=== PATIENT | female | born 1995 | race Caucasian/White ===

== ENCOUNTER 2019-01-24 10:02 | Emergency (ER) | payer OTHER ==
--- OUTSIDE RECORDS SUMMARY | 2019-01-24 10:04 | XMS REPORT ---
:1995 [facility] [address] [place] [address] Care Team Providers Name Role Phone Unavailable Unavailable Unavailable Problems This patient has no known problems. Allergies, Adverse Reactions, Alerts This patient has no known allergies or adverse reactions. Medications This patient has no known medications.
[2019-01-24 10:39] LABS: Absolute Lymphocytes (CBC) 1.4 K/uL (0.7-4.9); Absolute Monocytes 0.5 K/uL (0.1-1.3); Absolute Neutrophil 3.4 K/uL (1.8-8.0); Basophils % 0.5 % (0-1.3); Eosinophils % 3.5 % (0-4.4); Hematocrit 40.8 % (36.0-45.0); Lymphocytes % 25.6 % (15.3-44.8); MPV 9.2 fL (7.6-11.3); Monocytes % 8.9 % (3.3-12.3); RBC Red Blood Cell Count 4.79 M/uL (3.86-4.86)
[2019-01-24 11:15] LABS: BUN Blood Urea Nitrogen 10 mg/dL (7-18); Bicarbonate 25 mmol/L (21-32); Glucose Level 89 mg/dL (74-106); HCG, Quantitative 10469 mIU/mL (1-3); Potassium 3.8 mmol/L (3.5-5.1); Sodium Level 139 mmol/L (136-145)
[2019-01-24 12:32] LABS: Urine Blood 2+ (NEG); Urine Glucose NEGATIVE (NEG); Urine Protein NEGATIVE (NEG); Urine Specific Gravity 1.015 (1.005-1.030); Urine pH 6.5 (5.0-7.0)
--- NOTE | 2019-01-24 12:36 | RAD REPORT ---
EXAM DESCRIPTION: US - Transvaginal OB - 01/24/2019 12:22 pm CLINICAL HISTORY: with vaginal bleeding COMPARISON: None. FINDINGS: The uterus measures 10 x 5 x 6 centimeters. A gestational sac is present within the endom etrium. Within this is a yolk sac and pole with a crown-rump length 1.2 centimeters. Cardiac ac tivity 154 beats per minute. A 1.1 centimeter subchorionic bleed The right ovary is normal in size and echotexture. It contains a 1.8 centimeter cyst. Left ovary was not seen. Right and left adnexa are unremarkable. No significant free fluid is seen. IMPRESSION: Single live intrauterine with an estimated gestational age 6 weeks 6 days SAPNA 09/13/2019 Small subchorionic bleed
--- NOTE | 2019-01-24 12:40 | EDPHYS ---
Physician Documentation [facility] Name: Preethi Gamino Age: 23 yrs Sex: Female : 1995 Arrival Date: 01/24/2019 Time: 10:06 Bed 5 Private MD: ED Physician Zackery Figueroa HPI: 01/24 10:27 This 23 yrs old Female presents to ER via Ambulatory with complaints of kb Vaginal Bleeding, + Preg <12wks. 10:27 The patient presents to the emergency department with abdominal pain, that started kb "since I found out I was ", described as crampy, vaginal bleeding, described as spotting, "only when I wipe". The estimated gestational age is 10 weeks. course: care: at a clinic, Leakage of Fluid: none appreciated, Ultrasound: the patient has not had an ultrasound, Risk/complications: no obvious risks or complications are appreciated. Previous pregnancies: in previous pregnancies patient has had. Associated signs and symptoms: Pertinent positives: vaginal bleeding, abd cramping. The patient has not experienced similar symptoms in the past. The patient has not recently seen a physician. 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 - Social history:: Smoking status: Patient/guardian denies using tobacco. - Ebola Screening: : Patient negative for fever greater than or equal to 101.5 degrees Fahrenheit, and additional compatible Ebola Virus Disease symptoms Patient denies exposure to infectious person Patient denies travel to an Ebola-affected area in the 21 days before illness onset No symptoms or risks identified at this time. ROS: 10:26 Constitutional: Negative for fever, chills, and weight loss, Cardiovascular: Negative kb for chest pain, palpitations, and edema, Respiratory: Negative for shortness of breath, cough, wheezing, and pleuritic chest pain, Back: Negative for injury and pain, MS/Extremity: Negative for injury and deformity, Skin: Negative for injury, rash, and discoloration, Neuro: Negative for headache, weakness, numbness, tingling, and seizure. 10:26 Abdomen/GI: Positive for abdominal cramps. 10:26 : Positive for vaginal bleeding. Exam: 10:26 Constitutional: This is a well developed, well nourished patient who is awake, alert, kb and in no acute distress. Head/Face: Normocephalic, atraumatic. Chest/axilla: Normal chest wall appearance and motion. Nontender with no deformity. No lesions are appreciated. Cardiovascular: Regular rate and rhythm with a normal S1 and S2. No gallops, murmurs, or rubs. Normal PMI, no JVD. No pulse deficits. Respiratory: Lungs have equal breath sounds bilaterally, clear to auscultation and percussion. No rales, rhonchi or wheezes noted. No increased work of breathing, no retractions or nasal flaring. Back: No spinal tenderness. No costovertebral tenderness. Full range of motion. Skin: Warm, dry with normal turgor. Normal color with no rashes, no lesions, and no evidence of cellulitis. MS/ Extremity: Pulses equal, no cyanosis. Neurovascular intact. Full, normal range of motion. Neuro: Awake and alert, GCS 15, oriented to person, place, time, and situation. Cranial nerves II-XII grossly intact. Motor strength 5/5 in all extremities. Sensory grossly intact. Cerebellar exam normal. Normal gait. 10:26 Abdomen/GI: Inspection: abdomen appears normal, Bowel sounds: normal, in all quadrants, Palpation: soft, in all quadrants, mild abdominal tenderness, in the right lower quadrant and left lower quadrant. Vital Signs: 10:11 BP 137 / 92; Pulse 77; Resp 18; Temp 98.3; Pulse Ox 100% on R/A; Pain 4/10; sg 10:45 BP 107 / 74; Pulse 73; Resp 18; Pulse Ox 98% ; ae3 11:24 BP 108 / 76; Pulse 68; Resp 18; Pulse Ox 100% on R/A; ae3 12:28 BP 120 / 82; Pulse 70; Resp 18; Pulse Ox 100% on R/A; ae3 MDM: 10:06 Patient medically screened. kb 10:26 Data reviewed: vital signs, nurses notes. Data interpreted: Pulse oximetry: on room air kb is 100 %. Interpretation: normal. 11:17 ED course: Bedside US done, FHT noted. kb 12:39 Counseling: I had a detailed discussion with the patient and/or guardian regarding: the kb historical points, exam findings, and any diagnostic results supporting the discharge/admit diagnosis, lab results, radiology results, the need for outpatient follow up, an OB/Gyne specialist, to return to the emergency department if symptoms worsen or persist or if there are any questions or concerns that arise at home. 01/24 10:09 Order name: Quantitative Hcg; Complete Time: 11:16 kb 01/24 10:09 Order name: Abo/rh Typing; Complete Time: 11:08 kb 01/24 10:09 Order name: Basic Metabolic Panel; Complete Time: 11:16 kb 01/24 10:09 Order name: CBC with Diff; Complete Time: 11:04 kb 01/24 10:54 Order name: Urine Dipstick--Ancillary (enter results); Complete Time: 12:33 ms 01/24 10:54 Order name: Urine --Ancillary (enter results); Complete Time: 12:33 ms 01/24 10:09 Order name: Urine Test (obtain specimen); Complete Time: 10:44 kb 01/24 10:09 Order name: IV Saline Lock; Complete Time: 10:28 kb 01/24 10:09 Order name: Labs collected and sent; Complete Time: 10:28 kb 01/24 10:09 Order name: NPO; Complete Time: 10:28 kb 01/24 10:09 Order name: Urine Dipstick-Ancillary (obtain specimen); Complete Time: 10:44 kb 01/24 11:08 Order name: US Transvaginal Ob; Complete Time: 12:37 kb 01/24 12:29 Order name: Hepatic Function; Complete Time: 14:33 ms Administered Medications: No medications were administered Point of Care Testing: Urine : 12:52 hCG Reading: Positive; ae3 Disposition: 22:08 Co-signature as Attending Physician, Zackery Figueroa MD Available for consultation at ps1 all times . Disposition: 01/24/19 12:39 Discharged to Home. Impression: Threatened . - Condition is Stable. - Discharge Instructions: Vaginal Bleeding During , First Trimester, Threatened Miscarriage, [id number], Pelvic Rest. - Medication Reconciliation Form, Thank You Letter, Antibiotic Education, Prescription Opioid Use form. - Follow up: Emergency Department; When: As needed; Reason: Worsening of condition. Follow up: Private Physician; When: 2 - 3 days; Reason: Recheck today's complaints, Continuance of care, Re-evaluation by your physician. Signatures: Dispatcher [employer] EDMS Nimo Story, BOOKER-C CUTTING DEPARTMENT SUPERVISOR-Jin Weeks, RN RN sg Zackery Figueroa MD MD ps1 Geni Hannon ae3 Corrections: (The following items were deleted from the chart) 12:53 12:39 01/24/2019 12:39 Discharged to Home. Impression: Threatened . Condition ae3 is Stable. Discharge Instructions: Vaginal Bleeding During , First Trimester, Threatened Miscarriage, [id number], Pelvic Rest. Forms are Medication Reconciliation Form, Thank You Letter, Antibiotic Education, Prescription Opioid Use. Follow up: Emergency Department; When: As needed; Reason: Worsening of condition. Follow up: Private Physician; When: 2 - 3 days; Reason: Recheck today's complaints, Continuance of care, Re-evaluation by your physician. kb
--- NOTE | 2019-01-24 12:40 | ER ---
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 Transition of care: patient was not received from another setting of care. Onset of symptoms was January 24, 2019. Risk Assessment: Do you want to hurt yourself or someone else? Patient reports no desire to harm self or others. Initial Sepsis Screen: Does the patient meet any 2 criteria? No. Patient's initial sepsis screen is negative. Does the patient have a suspected source of infection? No. Patient's initial sepsis screen is negative. Care prior to arrival: None. 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 - Social history:: Smoking status: Patient/guardian denies using tobacco. - Ebola Screening: : Patient negative for fever greater than or equal to 101.5 degrees Fahrenheit, and additional compatible Ebola Virus Disease symptoms Patient denies exposure to infectious person Patient denies travel to an Ebola-affected area in the 21 days before illness onset No symptoms or risks identified at this time. Screenin:35 Abuse screen: Denies threats or abuse. Nutritional screening: No deficits noted. ae3 Tuberculosis screening: No symptoms or risk factors identified. Fall Risk None identified. Assessment: 10:28 Obstetrical Assessment: General assessment: awake and alert, skin warm and dry. ae3 General: Appears in no apparent distress. comfortable, Behavior is calm, cooperative, appropriate for age. Pain: Complains of pain in abdomen. Neuro: Level of Consciousness is awake, alert, obeys commands, Oriented to person, place, time, situation, Appropriate for age. Cardiovascular: No deficits noted. Respiratory: Denies shortness of breath. GI: Reports lower abdominal pain, upper abdominal pain, cramping, Patient currently denies nausea. : Reports cramping, vaginal bleeding that is bright red, light flow, Reports one small clot was passed. EENT: No signs and/or symptoms were reported regarding the EENT system. Derm: No deficits noted. No signs and/or symptoms reported regarding the dermatologic system. Skin is intact, Skin is dry, Skin is pink, warm \T\ dry. Skin temperature is warm. Musculoskeletal: No signs and/or symptoms reported regarding the musculoskeletal system. 10:34 Reassessment: Patient ambulated to restroom. Patient instructed on urine sample ae3 procedure. Patient has steady gait. 11:27 Reassessment: Patient appears in no apparent distress at this time. Patient and/or ae3 family updated on plan of care and expected duration. Pain level reassessed. Friend at bedside.. 12:30 Reassessment: Patient appears in no apparent distress at this time. No changes from ae3 previously documented assessment. Patient and/or family updated on plan of care and expected duration. Pain level reassessed. Friend at bedside. Vital Signs: 10:11 BP 137 / 92; Pulse 77; Resp 18; Temp 98.3; Pulse Ox 100% on R/A; Pain 4/10; sg 10:45 BP 107 / 74; Pulse 73; Resp 18; Pulse Ox 98% ; ae3 11:24 BP 108 / 76; Pulse 68; Resp 18; Pulse Ox 100% on R/A; ae3 12:28 BP 120 / 82; Pulse 70; Resp 18; Pulse Ox 100% on R/A; ae3 Vitals: 12:52 Heart Tones Please see ultrasound report.. ae3 ED Course: 10:06 Patient arrived in ED. mr 10:06 Nimo Story FNP-C is [facility]. kb 10:06 Zackery Figueroa MD is Attending Physician. kb 10:09 Arm band placed on. sg 10:11 Triage completed. sg 10:15 Inserted saline lock: 20 gauge in right antecubital area, using aseptic technique. ae3 Blood collected. 10:31 Bed in low position. Call light in reach. Side rails up X 1. Adult w/ patient. Pulse ox ae3 on. NIBP on. 12:08 Ultrasound completed. Patient tolerated well. sg3 12:23 US Transvaginal Ob In Process Unspecified. EDMS 12:51 No provider procedures requiring assistance completed. IV discontinued, intact, ae3 bleeding controlled, No redness/swelling at site. Pressure dressing applied. Administered Medications: No medications were administered Point of Care Testing: Urine : 12:52 hCG Reading: Positive; ae3 Outcome: 12:39 Discharge ordered by MD. kb 12:52 Discharged to home ambulatory. ae3 12:52 Condition: stable 12:52 Discharge instructions given to patient, Instructed on discharge instructions, follow up and referral plans. Demonstrated understanding of instructions. 12:53 Patient left the ED. ae3 Signatures: Dispatcher [employer] EDMS Nimo Story FNP-C FNP-Jin Weeks RN RN sg Rivera, Mary mr Godinez, Sarah sgGeni Hernandez ae3 Corrections: (The following items were deleted from the chart) 10:14 10:11 LMP 11/18/2018 sg sg
[2019-01-24 12:58] LABS: ALT/SGPT 16 U/L (12-78); AST/SGOT 13 U/L (15-37); Alkaline Phosphatase 67 U/L (45-117); Bilirubin Direct < 0.1 mg/dL (0-0.2); Bilirubin Total 0.5 mg/dL (0.2-1.0); Protein, Total 7.8 g/dL (6.4-8.2)
[2019-01-24 13:06] VITALS: TEMP 98.3
[2019-01-24 13:09] VITALS: O2SAT 100
[2019-01-24 13:10] VITALS: BP 120/82
[2019-01-24] MEDS ORDERED: LIDOCAINE 1% MPF 5 ML VIAL ONE (13:34)
== END 2019-01-24 12:53 | disposition home or self-care (01) ==
LOC: ER 10:02
DX: O20.0 Threatened abortion (principal); Z3A.10 10 weeks gestation of pregnancy
CPT/HCPCS: 36415; 76817; 80048; 80076; 81003; 81025; 84702; 85025; 86900; 86901; 99284

== ENCOUNTER 2022-09-07 14:54 | Emergency (ER) | payer OTHER ==
--- OUTSIDE RECORDS SUMMARY | 2022-09-07 15:00 | XMS REPORT | Continuity of Care Document ---
:[address] [facility] t Address [address] [place] [address] Care Team Providers Name Role Phone DAYSI SHAW Primary Care Physician Unavailable DAYSI SHAW Attending Clinician Unavailable Colin Daysi BOWENS Attending Clinician [phone] Lucía Patiño CNM Attending Clinician LUCÍA PATIÑO Attending Clinician Unavailable Provider, Kristian-Rmchp Temp Attending Clinician Unavailable Lab, Pea-Rmchp Attending Clinician Unavailable Luz Maria Warren DO Attending Clinician 1, Pea-m Room Attending Clinician Unavailable Doctor Unassigned, [place] Attending Clinician Unavailable LISSY BAI Attending Clinician Unavailable Lissy Funez Attending Clinician Lab, Kristian-Rmchp Attending Clinician Unavailable Arielle Glass Attending Clinician ARIELLE RAJPUT Attending Clinician Unavailable Visit, AngThadRmchp Nurse Attending Clinician Unavailable LORNA KIRKPATRICK Attending Clinician Unavailable Lorna Snow Attending Clinician Mercedes Ro RN Attending Clinician Unavailable Marnie Hartman Attending Clinician LORNA KIRKPATRICK Admitting Clinician Unavailable Payers Payer Name Policy Type Policy Number Effective Date Expiration Date Yinka lopez [employer] [place] [id number] 2018 00:00:00 [place] [place] [id number] 2022 00:00:00 Problems Condition Condition Condition Status Onset Resolution Last Treating Co mments Source Name Details Category Date Date Treatment Clinician Date History of History of Disease Active 2021-09 Overview : Univers abnormal abnormal 10-19 Formattin ity of cervical cervical 00:00: g of this [place] Pap smear Pap smear 00 note [facility] might be Branch different from the original. 12/2018 LGSIL12/2 021 ASCUS with +HPV03/20 22 negative colpo H/O H/O Disease Active 2021-09 Univers syncope syncope - ity of 00:00: [place] 00 [facility] UTI in UTI in Disease Active 2021-09 Univers 0-26 ity of 00:00: [place] [facility] Supervisio Supervisio Disease Active U nivers n of n of 06-19 it[place] of high[place]risk high[place] [facility] [place] Multiparit Multiparit Disease Active U nivers y y 06-19 ity of 00:00: [place] [facility] History of History of Disease Active U nivers miscarriag miscarriag 06-19 it y of e e 00:00: [place] 00 [facility] Routine Routine Disease Active Univers 1-24 [place] of [place] [facility] Branch ASCUS with ASCUS with Disease Active Overview : Univers positive positive -11 Formattin ity of high risk high risk 00:00: [place] HPV HPV 00 note Medical cervical cervical might be Bran ch different from the original. No SEAN noted on bx. Will need cotesting in 12 months (08/2022) . UTI in UTI in Disease Active 2020-09 Overview: Univer s - Formattin i ty of 00:00: g of this [place] 00 note Medical might be Branch different from the original. neg SAROJ Gonorrhea Gonorrhea Disease Active 2020-09 Overview: Univers in in - Formattin ity of 00:00: [place] 00 note Medical might be Branch different from the original. Pending SAROJ Papanicola Papanicola Disease Active Overview : Univers ou smear ou smear 4-30 Formattin ity of of cervix of cervix 00:00: [place] with low with low 00 note Medica l grade grade might be Branch squamous squamous different intraepith intraepith from the elial elial original. lesion lesion No SEAN (LGSIL) (LGSIL) noted on bx. Will need cotesting in 12 months (08/2022) . Flu Flu Disease Active Univers vaccine vaccine 4-17 ity of need need 00:00: [place] 00 Medical Branch No known No known Disease Metho di active active st problems problems Hospit [facility] l Allergies, Adverse Reactions, Alerts Allergy Allergy Status Severity Reaction(s) Onset Inactive Treating Comm ents Source Name Type Date Date Clinician NO KNOWN Drug Active [facility] ALLERGIE Class ity of S [facility] Social History Social Habit Start Date Stop Date Quantity Comments Source ASSERTION 2022-05-19 [facility] 00:00:00 [facility] [place] [facility] Exposure to 2022-08-28 2022-09-07 Not sure [facility] SARS-CoV-2 00:00:00 13:27:00 [facility] (event) [place]ien Alcohol intake 2022-09-07 2022-09-07 0 /d [facility] 00:00:00 00:00:00 [facility] [place] [facility] Tobacco use and 2022-06-19 2022-06-19 Smokeless tobacco Un iversity of exposure 00:00:00 00:00:00 non-user [facility] [place] [facility] Sex Ass[birth year] At [birth year] [facility] 00:00:00 00:00:00 Hospital Smoking Status Start Date Stop Date Source Tobacco smoking consumption [facility] unknown Never smoked tobacco [facility] Medications Ordered Filled Start Stop Current Ordering Indication Dosage Frequency Signature Comments Components Source Medication Medication Date Date Medication? Clinician (SIG) Name Name cephALEXin 2021-09- Yes [id number] 500mg Take 1 Univers (KEFLEX) 10-19 capsule by ity of 500 mg 00:00: 05:59 mouth 4 [place] capsule 00 :00 (four) Medical times [place] daily for 10 days. proMETHazin 2021-09 Yes [id number] 25mg Take 1 Univers e 25 mg 0-26 tablet by ity of tablet 00:00: mouth [place] 00 every 6 Medical (six) Branch hours as needed for Nausea and Vomiting (N/V). proMETHazin 2021-09 Yes [id number] 25mg Take 1 Univers e 25 mg 0-26 tablet by ity of tablet 00:00: mouth [place] 00 every 6 Medical (six) Branch hours as needed for Nausea and Vomiting (N/V). proMETHazin 2021-09 Yes [id number] 25mg Take 1 Univers e 25 mg 0-26 tablet by ity of tablet 00:00: mouth [place] 00 every 6 Medical (six) Branch hours as needed for Nausea and Vomiting (N/V). proMETHazin 2021-09 Yes [id number] 25mg Take 1 Univers e 25 mg 0-26 tablet by ity of tablet 00:00: mouth [place] 00 every 6 Medical (six) Branch hours as needed for Nausea and Vomiting (N/V). proMETHazin 2021-09 Yes [id number] 25mg Take 1 Univers e 25 mg 0-26 tablet by ity of tablet 00:00: mouth [place] 00 every 6 Medical (six) Branch hours as needed for Nausea and Vomiting (N/V). proMETHazin 2021-09 Yes [id number] 25mg Take 1 Univers e 25 mg 0-26 tablet by ity of tablet 00:00: mouth [place] 00 every 6 Medical (six) Branch hours as needed for Nausea and Vomiting (N/V). proMETHazin 2021-09 Yes [id number] 25mg Take 1 Univers e 25 mg 0-26 tablet by ity of tablet 00:00: mouth [place] 00 every 6 Medical (six) Branch hours as needed for Nausea and Vomiting (N/V). proMETHazin 2021-09 Yes [id number] 25mg Take 1 Univers e 25 mg 0-26 tablet by ity of tablet 00:00: mouth [place] 00 every 6 Medical (six) Branch hours as needed for Nausea and Vomiting (N/V). proMETHazin 2021-09 Yes [id number] 25mg Take 1 Univers e 25 mg 0-26 tablet by ity of tablet 00:00: mouth [place] 00 every 6 Medical (six) Branch hours as needed for Nausea and Vomiting (N/V). proMETHazin 2021-09 Yes [id number] 25mg Take 1 Univers e 25 mg 0-26 tablet by ity of tablet 00:00: mouth [place] 00 every 6 Medical (six) Branch hours as needed for Nausea and Vomiting (N/V). proMETHazin 2021-09 Yes [id number] 25mg Take 1 Univers e 25 mg 0-26 tablet by ity of tablet 00:00: mouth [place] 00 every 6 Medical (six) Branch hours as needed for Nausea and Vomiting (N/V). Nitrofurant 2021- Yes [id number] 100mg Take 1 Univers oin&Nit. 9-30 10-11 capsule by ity of [place] 00:00: 04:59 mouth in [place] (MACROBID) 00 :00 the Medical 100 mg morning Branch capsule and 1 capsule in the evening. Do all this for 10 days. Nitrofurant 2021- Yes [id number] 100mg Take 1 Univers oin&Nit. 9-30 10-11 capsule by ity of [place] 00:00: 04:59 mouth in [place] (MACROBID) 00 :00 the Medical 100 mg morning Branch capsule and 1 capsule in the evening. Do all this for 10 days. Nitrofurant 2021- Yes [id number] 100mg Take 1 Univers oin&Nit. 9-30 10-11 capsule by ity of [place] 00:00: 04:59 mouth in [place] (MACROBID) 00 :00 the Medical 100 mg morning Branch capsule and 1 capsule in the evening. Do all this for 10 days. Nitrofurant 2021- Yes [id number] 100mg Take 1 Univers oin&Nit. 9-30 10-11 capsule by ity of [place] 00:00: 04:59 mouth in [place] (MACROBID) 00 :00 the Medical 100 mg morning Branch capsule and 1 capsule in the evening. Do all this for 10 days. Yes [id number] 1{tbl} Take 1 U nivers multivitami 9-27 tablet by ity of n ( 00:00: mouth in [place] VITAMIN) 00 the Medical tablet morning. Branch Yes [id number] 1{tbl} Take 1 U nivers multivitami 9-27 tablet by ity of n ( 00:00: mouth in [place] VITAMIN) 00 the Medical tablet morning. [place] Yes [id number] 1{tbl} Take 1 U nivers multivitami 9-27 tablet by ity of n ( 00:00: mouth in [place] VITAMIN) 00 the Medical tablet morning. Branch Yes [id number] 1{tbl} Take 1 U nivers multivitami 9-27 tablet by ity of n ( 00:00: mouth in [place] VITAMIN) 00 the Medical tablet morning. Branch Yes [id number] 1{tbl} Take 1 U nivers multivitami 9-27 tablet by ity of n ( 00:00: mouth in [place] VITAMIN) 00 the Medical tablet morning. [place] Yes [id number] 1{tbl} Take 1 U nivers multivitami 9-27 tablet by ity of n ( 00:00: mouth in [place] VITAMIN) 00 the Medical tablet morning. [place] Yes [id number] 1{tbl} Take 1 U nivers multivitami 9-27 tablet by ity of n ( 00:00: mouth in [place] VITAMIN) 00 the Medical tablet morning. [place] Yes [id number] 1{tbl} Take 1 U nivers multivitami 9-27 tablet by ity of n ( 00:00: mouth in [place] VITAMIN) 00 the Medical tablet morning. [place] Yes [id number] 1{tbl} Take 1 U nivers multivitami 9-27 tablet by ity of n ( 00:00: mouth in [place] VITAMIN) 00 the Medical tablet morning. [place] Yes [id number] 1{tbl} Take 1 U nivers multivitami 9-27 tablet by ity of n ( 00:00: mouth in [place] VITAMIN) 00 the Medical tablet morning. [place] Yes [id number] 1{tbl} Take 1 U nivers multivitami 9-27 tablet by ity of n ( 00:00: mouth in [place] VITAMIN) 00 the Medical tablet morning. [place] Yes [id number] 1{tbl} Take 1 U nivers multivitami 9-27 tablet by ity of n ( 00:00: mouth in [place] VITAMIN) 00 the Medical tablet morning. [place] Yes [id number] 1{tbl} Take 1 U nivers multivitami 9-27 tablet by ity of n ( 00:00: mouth in [place] VITAMIN) 00 the Medical tablet morning. Branch Yes [id number] 1{tbl} Take 1 U nivers multivitami 9-27 tablet by ity of n ( 00:00: mouth in [place] VITAMIN) 00 the Medical tablet morning. Branch Yes [id number] 1{tbl} Take 1 U nivers multivitami 9-27 tablet by ity of n ( 00:00: mouth in [place] VITAMIN) 00 the Medical tablet morning. [place] Yes [id number] 1{tbl} Take 1 U nivers multivitami 9-27 tablet by ity of n ( 00:00: mouth in [place] VITAMIN) 00 the Medical tablet morning. [place] Yes [id number] 1{tbl} Take 1 U nivers multivitami 9-27 tablet by ity of n ( 00:00: mouth in [place] VITAMIN) 00 the Medical tablet morning. [place] Yes [id number] 1{tbl} Take 1 U nivers multivitami 9-27 tablet by ity of n ( 00:00: mouth in [place] VITAMIN) 00 the Medical tablet morning. [place] Yes [id number] 1{tbl} Take 1 U nivers multivitami 9-27 tablet by ity of n ( 00:00: mouth in [place] VITAMIN) 00 the Medical tablet morning. [place] Yes [id number] 1{tbl} Take 1 U nivers multivitami 9-27 tablet by ity of n ( 00:00: [place] VITAMIN) 00 the Medical tablet morning. Branch No known No Univers medications 3-10 ity of 11:56: [place] 40 [facility] Nitrofurant 2020-09- No [id number] 100mg Take 1 Univers oin&Nit. 2-31 03-10 capsule by ity of [place] 00:00: 00:00 mouth 2 [place] (MACROBID) 00 :00 (two) Medical 100 mg times Branch capsule daily. Nitrofurant 2020-09- No [id number] 100mg Take 1 Univers oin&Nit. 2 03-10 capsule by ity of [place] 00:00: 00:00 mouth 2 [place] (MACROBID) 00 :00 (two) Medical 100 mg times Branch capsule daily. 2020-09- No [id number] 1{tbl} Take 1 Univers multivitami 11-19 03-10 tablet by it y of n ( 00:00[place] VIT[place] 00 :00 daily. Medical tablet Branch 2020-09- No [id number] 1{tbl} Take 1 Univers multivitami 11-19 03-10 tablet by it y of n ( 00:00[place] VITAMIN[place] 00 :00 daily. Medical tablet Branch No known No No known Metho di medications 2-[address] [facility]:33: [facility] Immunizations Ordered Immunization Filled Immunization Date Status Commen ts Source Name Name Influenza Virus 2019-01-07 Completed Universit y of Vaccine Quad .5 mL IM 00:00:00 [place] Medical 6+ MO Branch Influenza Virus 2019-01-07 Completed Universit y of Vaccine Quad .5 mL IM 00:00:00 [place] Medical 6+ MO Branch Influenza Virus 2019-01-07 Completed Universit y of Vaccine Quad .5 mL IM 00:00:00 [place] 6+ MO Branch Influenza Virus 2019-01-07 Completed Universit y of Vaccine Quad .5 mL IM 00:00:00 [place] Medical 6+ MO Branch Influenza Virus 2019-01-07 Completed Universit y of Vaccine Quad .5 mL IM 00:00:00 [place] Medical 6+ MO Branch Influenza Virus 2019-01-07 Completed Universit y of Vaccine Quad .5 mL IM 00:00:00 [place] Medical 6+ MO Branch Influenza Virus 2019-01-07 Completed Universit y of Vaccine Quad .5 mL IM 00:00:00 [place] Medical 6+ MO Branch Influenza Virus 2019-01-07 Completed Universit y of Vaccine Quad .5 mL IM 00:00:00 [place] Medical 6+ MO Branch Influenza Virus 2019-01-07 Completed Universit y of Vaccine Quad .5 mL IM 00:00:00 [place] Medical 6+ MO Branch Influenza Virus 2019-01-07 Completed Universit y of Vaccine Quad .5 mL IM 00:00:00 [place] Medical 6+ MO Branch Influenza Virus 2019-01-07 Completed Universit y of Vaccine Quad .5 mL IM 00:00:00 [place] Medical 6+ MO Branch Influenza Virus 2019-01-07 Completed Universit y of Vaccine Quad .5 mL IM 00:00:00 [place] Medical 6+ MO Branch Influenza Virus 2019-01-07 Completed Universit y of Vaccine Quad .5 mL IM 00:00:00 [place] Medical 6+ MO Branch Influenza Virus 2019-01-07 Completed Universit y of Vaccine Quad .5 mL IM 00:00:00 [place] Medical 6+ MO Branch Influenza Virus 2019-01-07 Completed Universit y of Vaccine Quad .5 mL IM 00:00:00 [place] Medical 6+ MO Branch Influenza Virus 2019-01-07 Completed Universit y of Vaccine Quad .5 mL IM 00:00:00 [place] Medical 6+ MO Branch Influenza Virus 2019-01-07 Completed Universit y of Vaccine Quad .5 mL IM 00:00:00 [place] Medical 6+ MO Branch Influenza Virus 2019-01-07 Completed Universit y of Vaccine Quad .5 mL IM 00:00:00 [place] Medical 6+ MO Branch Influenza Virus 2019-01-07 Completed Universit y of Vaccine Quad .5 mL IM 00:00:00 [place] Medical 6+ MO Branch Influenza Virus 2019-01-07 Completed Universit y of Vaccine Quad .5 mL IM 00:00:00 [place] Medical 6+ MO Branch Influenza Virus 2019-01-07 Completed Universit y of Vaccine Quad .5 mL IM 00:00:00 [place] Medical 6+ MO Branch Influenza Virus 2019-01-07 Completed Universit y of Vaccine Quad .5 mL IM 00:00:00 [place] Medical 6+ MO Branch Influenza Virus 2019-01-07 Completed Universit y of Vaccine Quad .5 mL IM 00:00:00 [place] Medical 6+ MO Branch Influenza Virus 2016-09-13 Completed Universit y of Vaccine Quad IM 3+ 00:00:00 [facility] Branch Influenza Virus 2016-09-13 Completed Universit y of Vaccine Quad IM 3+ 00:00:00 [facility] Branch Influenza Virus 2016-09-13 Completed Universit y of Vaccine Quad IM 3+ 00:00:00 [facility] Influenza Virus 2016-09-13 Completed Universit y of Vaccine Quad IM 3+ 00:00:00 [facility] Influenza Virus 2016-09-13 Completed Universit y of Vaccine Quad IM 3+ 00:00:00 [facility] Influenza Virus 2016-09-13 Completed Universit y of Vaccine Quad IM 3+ 00:00:00 [facility] Influenza Virus 2016-09-13 Completed Universit y of Vaccine Quad IM 3+ 00:00:00 [facility] Influenza Virus 2016-09-13 Completed Universit y of Vaccine Quad IM 3+ 00:00:00 [facility] Influenza Virus 2016-09-13 Completed Universit y of Vaccine Quad IM 3+ 00:00:00 [facility] Influenza Virus 2016-09-13 Completed Universit y of Vaccine Quad IM 3+ 00:00:00 [facility] Influenza Virus 2016-09-13 Completed Universit y of Vaccine Quad IM 3+ 00:00:00 [facility] Influenza Virus 2016-09-13 Completed Universit y of Vaccine Quad IM 3+ 00:00:00 [facility] Influenza Virus 2016-09-13 Completed Universit y of Vaccine Quad IM 3+ 00:00:00 [facility] Influenza Virus 2016-09-13 Completed Universit y of Vaccine Quad IM 3+ 00:00:00 [facility] Influenza Virus 2016-09-13 Completed Universit y of Vaccine Quad IM 3+ 00:00:00 [facility] Influenza Virus 2016-09-13 Completed Universit y of Vaccine Quad IM 3+ 00:00:00 [facility] Influenza Virus 2016-09-13 Completed Universit y of Vaccine Quad IM 3+ 00:00:00 [facility] Influenza Virus 2016-09-13 Completed Universit y of Vaccine Quad IM 3+ 00:00:00 [facility] Influenza Virus 2016-09-13 Completed Universit y of Vaccine Quad IM 3+ 00:00:00 [facility] Influenza Virus 2016-09-13 Completed Universit y of Vaccine Quad IM 3+ 00:00:00 [facility] Influenza Virus 2016-09-13 Completed Universit y of Vaccine Quad IM 3+ 00:00:00 [facility] Influenza Virus 2016-09-13 Completed Universit y of Vaccine Quad IM 3+ 00:00:00 [facility] Influenza Virus 2016-09-13 Completed Universit y of Vaccine Quad IM 3+ 00:00:00 [facility] HPV 2012-07-08 Completed University of 00:00:00 [facility] [place] [facility] HPV 2012-07-08 Completed University of 00:00:00 [facility] [place] [facility] HPV 2012-07-08 Completed University of 00:00:00 [facility] [place] [facility] HPV 2012-07-08 Completed University of 00:00:00 [facility] [place] [facility] HPV 2012-07-08 Completed University of 00:00:00 [facility] [place] [facility] HPV 2012-07-08 Completed University of 00:00:00 [facility] [place] [facility] HPV 2012-07-08 Completed University of 00:00:00 [facility] [place] [facility] HPV 2012-07-08 Completed University of 00:00:00 [facility] [place] [facility] HPV 2012-07-08 Completed University of 00:00:00 [facility] [place] [facility] HPV 2012-07-08 Completed University of 00:00:00 [facility] [place] [facility] HPV 2012-07-08 Completed University of 00:00:00 [facility] [place] [facility] HPV 2008-12-17 Completed University of 00:00:00 [facility] [place] [facility] Meningococcal 2008-12-17 Completed University of Polysaccharide 00:00:00 [place] [facility] valdo (groups A, C, Y and Branc h W-135) conjugate vaccine (MCV4P) HPV 2008-12-17 Completed University of 00:00:00 [facility] [place] [facility] Meningococcal 2008-12-17 Completed University of Polysaccharide 00:00:00 [place] Medi valdo (groups A, C, Y and Branc h W-135) conjugate vaccine (MCV4P) HPV 2008-12-17 Completed University of 00:00:00 [facility] [place] [facility] Meningococcal 2008-12-17 Completed University of Polysaccharide 00:00:00 [place] Medi valdo (groups A, C, Y and Branc h W-135) conjugate vaccine (MCV4P) HPV 2008-12-17 Completed University of 00:00:00 [facility] [place] [facility] Meningococcal 2008-12-17 Completed University of Polysaccharide 00:00:00 [place] Medi valdo (groups A, C, Y and Branc h W-135) conjugate vaccine (MCV4P) HPV 2008-12-17 Completed University of 00:00:00 [facility] [place] [facility] Meningococcal 2008-12-17 Completed University of Polysaccharide 00:00:00 [place] Medi valdo (groups A, C, Y and Branc h W-135) conjugate vaccine (MCV4P) HPV 2008-12-17 Completed University of 00:00:00 [facility] [place] [facility] Meningococcal 2008-12-17 Completed University of Polysaccharide 00:00:00 [place] Medi valdo (groups A, C, Y and Branc h W-135) conjugate vaccine (MCV4P) HPV 2008-12-17 Completed University of 00:00:00 [facility] [place] [facility] Meningococcal 2008-12-17 Completed University of Polysaccharide 00:00:00 [place] Medi valdo (groups A, C, Y and Branc h W-135) conjugate vaccine (MCV4P) HPV 2008-12-17 Completed University of 00:00:00 [facility] [place] [facility] Meningococcal 2008-12-17 Completed University of Polysaccharide 00:00:00 [place] Medi valdo (groups A, C, Y and Branc h W-135) conjugate vaccine (MCV4P) HPV 2008-12-17 Completed University of 00:00:00 [facility] [place] [facility] Meningococcal 2008-12-17 Completed University of Polysaccharide 00:00:00 [place] Medi valdo (groups A, C, Y and Branc h W-135) conjugate vaccine (MCV4P) HPV 2008-12-17 Completed University of 00:00:00 [facility] [place] [facility] Meningococcal 2008-12-17 Completed University of Polysaccharide 00:00:00 [place] Medi valdo (groups A, C, Y and Branc h W-135) conjugate vaccine (MCV4P) HPV 2008-12-17 Completed University of 00:00:00 [facility] [place] [facility] Meningococcal 2008-12-17 Completed University of Polysaccharide 00:00:00 [place] Medi valdo (groups A, C, Y and Branc h W-135) conjugate vaccine (MCV4P) Vital Signs Vital Name Observation Time Observation Value Comments Source Systolic blood 2022-09-07 19:28:00 120 mm[Hg] Univer sity of pressure [facility] [place] [facility] Diastolic blood 2022-09-07 19:28:00 76 mm[Hg] Unive rsity of pressure [facility] [place] [facility] Heart rate 2022-09-07 19:28:00 84 /min [facility] Body temperature 2022-09-07 19:28:00 36.33 [facility] Res[facility] rate 2022-09-07 19:28:00 18 /min [facility] Body height 2022-09-07 19:28:00 170.2 cm [facility] Body weight 2022-09-07 19:28:00 54.035 kg Universi ty [facility] [place] [facility] BMI 2022-09-07 19:28:00 18.66 kg/m2 Universi ty [facility] [place] [facility] Systolic blood 2022-08-15 19:01:00 111 mm[Hg] Univer sity of pressure [place] [facility] Diastolic blood 2022-08-15 19:01:00 73 mm[Hg] Unive rsity of pressure [place] [facility] Heart rate 2022-08-15 19:01:00 89 /min Universi ty of [place] [facility] Body temperature 2022-08-15 19:01:00 36.83 Samantha Univ ersity of [place] [facility] Respiratory rate 2022-08-15 19:01:00 18 /min Univ ersity of [place] [facility] Body height 2022-08-15 19:01:00 170.2 cm Universi ty [facility] [place] [facility] Body weight 2022-08-15 19:01:00 53.978 kg [facility]i ty [facility] [place] [facility] BMI 2022-08-15 19:01:00 18.64 kg/m2 [facility]i [facility] [place] [facility] Systolic blood 2022-07-18 18:08:00 124 mm[Hg] Univer sity of pressure [place] [facility] Diastolic blood 2022-07-18 18:08:00 82 mm[Hg] Unive rsity of pressure [place] [facility] Heart rate 2022-07-18 18:08:00 90 /min Universi ty [facility] [place] [facility] Body temperature 2022-07-18 18:08:00 36.94 [facility] Univ ersity of [place] [facility] Respiratory rate 2022-07-18 18:08:00 20 /min Univ ersity of [place] [facility] Body height 2022-07-18 18:08:00 170.2 cm Universi ty [facility] [place] [facility] Body weight 2022-07-18 18:08:00 53.797 kg Universi ty [facility] [place] [facility] BMI 2022-07-18 18:08:00 18.58 kg/m2 [facility] [place] [facility] Systolic blood 2022-06-19 15:01:00 121 mm[Hg] Univer sity of pressure [place] [facility] Diastolic blood 2022-06-19 15:01:00 84 mm[Hg] Unive rsity of pressure [place] [facility] Heart rate 2022-06-19 15:01:00 80 /min Universi ty of [facility] Body temperature 2022-06-19 15:01:00 36.72 [facility] Res[facility] rate 2022-06-19 15:01:00 18 /min [facility] Body height 2022-06-19 15:01:00 170.2 cm Universi ty of [facility] Body weight 2022-06-19 15:01:00 53.78 kg Universi ty [facility] BMI 2022-06-19 15:01:00 18.57 kg/m2 Universi ty [facility] Systolic blood 2021-11-30 16:23:00 117 mm[Hg] Univer sity of [facility] Diastolic blood 2021-11-30 16:23:00 75 mm[Hg] Unive rsity of [facility] Heart rate 2021-11-30 16:23:00 73 /min Universi ty [facility] Body temperature 2021-11-30 16:23:00 36.89 [facility] [facility] Body height 2021-11-30 16:23:00 170.2 cm [facility] Body weight 2021-11-30 16:23:00 55.838 kg Universi ty [facility] BMI 2021-11-30 16:23:00 19.28 kg/m2 [facility] Procedures Procedure Date / Time Performed Performing Clinician Sour e POCT URINALYSIS 2022-09-07 19:29:00 Daysi [facility] POCT URINALYSIS 2022-08-15 21:26:00 Daysi [facility] URINE CULTURE 2022-08-15 20:13:00 [facility] POCT URINALYSIS 2022-07-18 00:00:00 Daysi [facility] REPORT OF 2022-06-20 05:01:00 [facility] 2022-06-19 14:55:00 Daysi Shaw [facility] POCT URINALYSIS W/O 2022-06-19 14:55:00 Daysi Shaw [facility] of [place] SPECIFIC GRAVITY [facility] DISCLOSURE AND 2021-11-30 06:01:00 Doctor Unassigned, Natali jason [facility] CONSENT, MEDICAL AND Name Medical Bra [facility] SURGICAL PROCEDURES POCT TEST 2021-11-30 00:00:00 [facility] Start End Encounter Admission Attending Care Care Encounter Source Date/Time Date/Time Type Type Clinicians Facility Department ID 2021-07-23 Emergency [facility] [id number] Univers 02:27:33 [facility] 2022-10-05 2022-10-05 Outpatient R COLIN [facility] [id number] Univers 10:30:00 10:30:00 DAYSI [facility] 2022-09-12 2022-09-12 Outpatient R COLIN [facility] [id number] Univers 13:15:00 13:15:00 DAYSI [facility] o [facility] 2022-09-07 2022-09-07 Outpatient R COLIN, [facility] [id number] Univers 13:30:00 14:25:18 DAYSI morejony o f [facility] 2022-09-07 2022-09-07 [facility] [id number] Univers 13:30:00 14:25:18 Daysi White RIG SUPERVISOR 350.1.13.10 ity of Visit REGIONAL 4.2.7.2.686 Robby as MATERNAL [phone] Med ical & CHILD [address] [place] [address] 2022-09-07 2022-09-07 Telephone [facility] 1.2.840.114 [id number] Univers 00:00:00 00:00:00 Daysi White RIG SUPERVISOR 350.1.13.10 ity of REGIONAL 4.2.7.2.686 Robby as MATERNAL [phone] Med ical & CHILD [address] [place] [address] 2022-08-19 2022-08-19 Angelo Patiño [facility] 1.2.840.114 [id number] Univers 00:00:00 00:00:00 Management Lucía Kim RIG SUPERVISOR 350.1.13.10 ity of [facility] 4.2.7.2.686 Robby as MATERNAL [phone] Med ical & CHILD [address] [place] [address] 2022-08-15 2022-08-15 Outpatient R HAROON [facility] [id number] Univers 12:45:00 13:20:40 LUCÍA [facility] 2022-08-15 2022-08-15 Routine Provider, Kristian[facility] 1 .2.840.114 [id number] Univers 12:45:00 13:20:40 Daysi Shaw RIG SUPERVISOR 350.1.13 .10 ity of Visit Lucía Patiño [facility] 4.2.7.2.686 [place] MATERNAL [phone] [facility] ical & CHILD [address] [place] [address] 2022-08-02 2022-08-02 Paper Gluing Operator Lab, [facility] 1.2.840. 114 [id number] Univers 11:30:00 11:45:00 Visit Luz Maria Warren RIG SUPERVISOR 350.1.13.10 ity of [facility] 4.2.7.2.686 Robby as MATERNAL [id number] [facility] ical & CHILD [address] 2022-08-02 2022-08-02 Outpatient P GERALDO [facility] [id number] Univers 11:30:00 11:30:00 LUZ MARIA [facility] 2022-08-02 2022-08-02 Paper Gluing Operator 1, Alvin-[facility] Room [facility] 1.2. 840.114 [id number] Univers 10:30:00 11:15:00 Visit Luz Maria Warren RIG SUPERVISOR 350.1.13.10 ity of [place] [address]..7.2.686 Robby as MATERNAL [phone] [facility] ical & CHILD [address] 2022-08-02 2022-08-02 Abstract Colin [facility] 1.2.840.114 [id number] Univers 00:00:00 00:00:00 Daysi C RIG SUPERVISOR 350.1.13.10 ity of REGIONAL 4.2.7.2.686 Robby as MATERNAL [id number] [facility] & CHILD [address] [place] [address] 2022-07-18 2022-07-[address] [facility] 1.2.163.116 [id number] Univers 13:30:00 13:30:00 Daysi C RIG SUPERVISOR 350.1.13.10 ity of Visit [facility] 4.2.7.2.686 Robby as MATERNAL [id number] [address] 2022-07-18 2022-07-18 Outpatient R [facility] [id number] Univers 13:30:00 13:19:54 DAYSI ity o f [facility] 2022-06-22 2022-06-[address] [facility] 1.2.840.114 [id number] Univers 00:00:00 00:00:00 Daysi C RIG SUPERVISOR 350.1.13.10 ity of [facility] 4.2.7.2.686 Robby as MATERNAL [id number] [address] 2022-06-20 2022-06-20 Orders Doctor LALITHA 1.2.840.114 [id number] Univers 00:00:00 00:00:00 Only Unassigned, JACK 350.1.13.10 ity of [place] [facility] 4.2.7.2.686 Robby as [phone] [address] 2022-06-19 2022-06-19 Outpatient R [facility] [id number] Univers 10:00:00 10:55:26 DAYSI ity o f [facility] 2022-06-19 2022-06-[address] [facility] 1.2.832.202 [id number] Univers 10:00:00 10:55:26 Daysi C RIG SUPERVISOR 350.1.13.10 ity of Visit [facility] 4.2.7.2.686 Robby as MATERNAL [id number] [facility] & CHILD [address] [place] [address] 2022-06-19 2022-06-19 Feli [facility] 1.2.697.253 [id number] Univers 00:00:00 00:00:00 (Out) Daysi White RIG SUPERVISOR 350.1.13.10 ity [facility] 4.2.7.2.686 Robby as MATERNAL [id number] [facility] ical & CHILD [address] [facility] 2022-06-13 2022-06-13 Outpatient [facility] [id number] Univers 14:15:00 14:15:00 DAYSI ulloa [facility] 2021-11-30 2021-11-30 Outpatient Cheyenne BAI [facility] [id number] Univers 10:00:00 11:51:09 LISSY ulloa [facility] 2021-11-30 2021-11-30 Office [facility] 1.2.840.114 [id number] Univers 10:00:00 11:51:09 Visit Lissy Kim RIG SUPERVISOR 350.1.13.10 ity [facility] 4.2.7.2.686 Robby as MATERNAL [phone] [facility] ical & CHILD [address] 2021-11-30 2021-11-30 Outpatient Cheyenne [facility] [id number] Univers 10:00:00 11:51:09 LISSY ulloa [facility] 2021-11-30 2021-11-30 Orders Doctor DOTY 1.2.840.114 [id number] Univers 00:00:00 00:00:00 Only Unassigned, JACK 350.1.13.10 ity of [place] [facility] 4.2.7.2.686 Robby as [phone] [address] 2021-10-30 2021-10-30 Outpatient Cheyenne SHAW [facility] [id number] Univers 14:00:00 14:00:00 DAYSI fairchild [facility] 2021-10-30 2021-10-30 Outpatient Cheyenne [facility] [id number] Univers 14:00:00 14:00:00 DAYSI fairchild [facility] 2021-10-17 2021-10-17 [facility] 1.2.840.114 [id number] Univers 00:00:00 00:00:00 Daysi C RIG SUPERVISOR 350.1.13.10 ity of REGIONAL 4.2.7.2.686 Robby as MATERNAL [phone] [facility] & CHILD [address] [place] [address] 2021-10-16 2021-10-16 Outpatient R AKINSIPE, [facility] [id number] Univers 09:30:00 09:46:35 DAYSI ity o f [facility] 2021-10-16 2021-10-[address] [facility] 1.2.827.066 [id number] Univers 09:30:00 09:46:35 Daysi C RIG SUPERVISOR 350.1.13.10 ity of Visit REGIONAL 4.2.7.2.686 Robby as MATERNAL [phone] [facility] & CHILD [address] [place] [address] 2021-10-11 2021-10-11 Telephone [facility] 1.2.840.114 [id number] Univers 00:00:00 00:00:00 Daysi C RIG SUPERVISOR 350.1.13.10 ity of REGIONAL 4.2.7.2.686 Robby as MATERNAL [id number] [facility] & [address] 2021-10-04 2021-10-04 Out[facility] [id number] Univers 08:15:00 08:15:00 DAYIS ity o f [facility] 2021-09-29 2021-09-29 Outpatient R AKINSIPE, [facility] [id number] Univers 08:00:00 08:00:00 DAYSI ity o f [facility] 2021-09-28 2021-09-[address] [facility] 1.2.840.114 [id number] Univers 00:00:00 00:00:00 Daysi C RIG SUPERVISOR 350.1.13.10 ity of REGIONAL 4.2.7.2.686 Robby as MATERNAL [phone] [facility] & CHILD [address] [place] [address] 2021-09-27 2021-09-27 Paper Gluing Operator Lab, Ang-Rmchp [facility] 1.2.840. 114 [id number] Univers 08:15:00 08:43:56 Visit Rajput, Arielle Quinn RIG SUPERVISOR 350.1.13.10 [facility] 4.2.7.2.686 [place]by as MATERNAL [phone] [facility] & CHILD [address] [facility] 2021-09-27 2021-09-27 Outpatient Cheyenne RAJPUT [facility] [id number] Univers 08:15:00 08:15:00 ANAHILARIA hsu o [facility] 2021-09-25 2021-09-25 Outpatient Cheyenne RAJPUT [facility] [id number] Univers 09:30:00 10:55:40 ANAHILARIA hsu o [facility] 2021-09-25 2021-09-25 Outpatient Cheyenne RAJPUT [facility] [id number] Univers 09:30:00 10:55:40 ANAGARRISON hsu [facility] 2021-09-25 2021-09-25 Nurse Visit, Ang-Rmchp Nurse [facility] 1.2 .840.114 [id number] Univers 09:30:00 10:55:40 Visit RajputArielle RIG SUPERVISOR 350.1.13.10 [facility] 4.2.7.2.686 Robby as MATERNAL [phone] [facility] & CHILD [address] [place] [address] 2021-09-22 2021-09-22 Emergency X [facility] ERT [id number] Univers 16:38:00 19:29:00 LORNA [facility] 2021-09-22 2021-09-22 Emergency [facility] 1.2.116.957 [id number] Univers 16:38:00 19:29:00 Lorna AMAYA 350.1.13.10 i ty [facility] 4.2.7.2.686 [facility] [phone] [facility] 084 Lucien 2021-09-22 2021-09-22 Emergency X [facility] ERT [id number] Univers 16:38:00 19:29:00 LORNA ity [facility] 2021-09-22 2021-09-22 Emergency X CASIMIRO [facility] ERT [id number] Univers 16:38:00 16:38:00 LORNA hsu [facility] 2021-09-22 2021-09-[address] [facility] 1.2.840.114 [id number] Univers 00:00:00 00:00:00 Daysi C RIG SUPERVISOR 350.1.13.10 ity of REGIONAL 4.2.7.2.686 Robby as MATERNAL [phone] [facility] ical & CHILD [address] [place] [address] 2021-09-22 2021-09-22 Telephone Visit, [facility] 1.2.546.744 [id number] Univers 00:00:00 00:00:00 [facility] RIG SUPERVISOR 350.1.13.10 ity of Nurse REGIONAL 4.2.7.2.686 Robby as MATERNAL [phone] [facility] & CHILD [address] [place] [address] 2021-09-20 2021-09-[address] [facility] 1.2.840.114 [id number] Univers 00:00:00 00:00:00 Daysi C RIG SUPERVISOR 350.1.13.10 ity of REGIONAL 4.2.7.2.686 Robby as MATERNAL [phone] [facility] CHILD [address] [place] [address] 2021-09-19 2021-09-[address] [facility] 1.2.840.114 [id number] Univers 00:00:00 00:00:00 Daysi C RIG SUPERVISOR 350.1.13.10 ity of REGIONAL 4.2.7.2.686 Robby as MATERNAL [phone] [facility] & CHILD [address] [place] [address] 2021-09-18 2021-09-18 Outpatient R COLIN [facility] [id number] Univers 08:30:00 10:11:28 DAYSI ity o f [facility] 2021-09-18 2021-09-18 Initial [facility] 1.2.148.195 [id number] Univers 08:30:00 10:11:28 Daysi C RIG SUPERVISOR 350.1.13.10 ity of Visit [facility] 4.2.7.2.686 Robby as MATERNAL [phone] Med ical & CHILD [address] [place] [address] 2021-09-18 2021-09-18 Outpatient R COLIN [facility] [id number] Univers 08:30:00 10:11:28 DAYSI hsu o f [facility] 2021-09-18 2021-09-18 Orders Doctor LALITHA 1.2.840.114 [id number] Univers 00:00:00 00:00:00 Only Unassigned, JACK 350.1.13.10 ity of [place] [facility] 4.2.7.2.686 Robby as [phone] [facility] 009 Lucien 2020-11-23 2020-11-23 Telephone LALITHA Ro 1.2.497.258 [id number] Univers 00:00:00 00:00:00 Mercedes SANTIAGO 350.1.13.10 i ty of [facility] 4.2.7.2.686 Robby as [phone] [facility] 019 Lucien 2020-11-22 2020-11-22 Emergency [facility] [id number] Univers 10:54:00 16:40:00 Marnie Amaya 350.1.13.10 i ty of [place] 4.2.7.2.686 [place] [facility] [phone] [facility] 084 Lucien 2020-11-22 2020-11-22 Orders Doctor LALITHA 1.2.840.114 [id number] Univers 00:00:00 00:00:00 Only Unassigned, JACK 350.1.13.10 ity of [place] [facility] 4.2.7.2.686 Robby as [phone] [address] Results Test Description Test Time Test Comments Results Result Comments Source POCT URINALYSIS W SPECIFIC GRAVITY 2022-09-07 19:29:00 Test Item Value Reference Range Interpretation Comme nts POCT U SP GRAV (test code = 3255) . 1.005-1.025 POCT PH U (test code = 3254) . 5-8 POCT U LEUK EST (test code = 3263) . Negative - Negative POCT U NIT (test code = 3262) . Negative - Negative POCT U PROT (test code = 3259) 2+ Negative - Negative POCT U GLU (test code = 3256) Neg Negative - Negative POCT U KETONE (test code = 3258) . Negative - Negative POCT U UROBILI (test code = 3260) . 0.2-1 POCT U BILI (test code = 3261) . Negative - Negative POCT U BLD (test code = 3257) . Negative - Negative POCT U COLOR (test code = 3266) . POCT U APPEAR (test code = 3267) [facility] URINALYSIS W SPECIFIC [id number] 19:29:00 Test Item Value Reference Range Interpretation Comments POCT U SP GRAV (test code = 3255) . 1.005-1.025 POCT PH U (test code = 3254) . 5-8 POCT U LEUK EST (test code = 3263) . Negative - Negative POCT U NIT (test code = 3262) . Negative - Negative POCT U PROT (test code = 3259) 2+ Negative - Negative POCT U GLU (test code = 3256) Neg Negative - Negative POCT U KETONE (test code = 3258) . Negative - Negative POCT U UROBILI (test code = 3260) . 0.2-1 POCT U BILI (test code = 3261) . Negative - Negative POCT U BLD (test code = 3257) . Negative - Negative POCT U COLOR (test code = 3266) . POCT U APPEAR (test code = 3267) [facility] URINALYSIS W SPECIFIC [id number] 19:29:00 Test Item Value Reference Range Interpretation Comments POCT U SP GRAV (test code = 3255) . 1.005-1.025 POCT PH U (test code = 3254) . 5-8 POCT U LEUK EST (test code = 3263) . Negative - Negative POCT U NIT (test code = 3262) . Negative - Negative POCT U PROT (test code = 3259) 2+ Negative - Negative POCT U GLU (test code = 3256) Neg Negative - Negative POCT U KETONE (test code = 3258) . Negative - Negative POCT U UROBILI (test code = 3260) . 0.2-1 POCT U BILI (test code = 3261) . Negative - Negative POCT U BLD (test code = 3257) . Negative - Negative POCT U COLOR (test code = 3266) . POCT U APPEAR (test code = 3267) [facility] URINALYSIS W SPECIFIC [id number] 19:29:00 Test Item Value Reference Range Interpretation Comments POCT U SP GRAV (test code = 3255) . 1.005-1.025 POCT PH U (test code = 3254) . 5-8 POCT U LEUK EST (test code = 3263) . Negative - Negative POCT U NIT (test code = 3262) . Negative - Negative POCT U PROT (test code = 3259) 2+ Negative - Negative POCT U GLU (test code = 3256) Neg Negative - Negative POCT U KETONE (test code = 3258) . Negative - Negative POCT U UROBILI (test code = 3260) . 0.2-1 POCT U BILI (test code = 3261) . Negative - Negative POCT U BLD (test code = 3257) . Negative - Negative POCT U COLOR (test code = 3266) . POCT U APPEAR (test code = 3267) [facility] URINALYSIS W SPECIFIC [id number] 21:26:00 Test Item Value Reference Range Interpretation Comments POCT U SP GRAV (test code = 3255) . 1.005-1.025 POCT PH U (test code = 3254) . 5-8 POCT U LEUK EST (test code = 3263) . Negative - Negative POCT U NIT (test code = 3262) . Negative - Negative POCT U PROT (test code = 3259) Trace Negative - Negative POCT U GLU (test code = 3256) Neg Negative - Negative POCT U KETONE (test code = 3258) . Negative - Negative POCT U UROBILI (test code = 3260) . 0.2-1 POCT U BILI (test code = 3261) . Negative - Negative POCT U BLD (test code = 3257) . Negative - Negative POCT U COLOR (test code = 3266) . POCT U APPEAR (test code = 3267) [facility] URINALYSIS W SPECIFIC [id number] 18:10:00 Test Item Value Reference Range Interpretation Comments POCT U SP GRAV (test code = . 1.005-1.025 3255) POCT PH U (test code = 3254) . 5-8 POCT U LEUK EST (test code = . Negative - Negative 3263) POCT U NIT (test code = 3262) . Negative - Negative POCT U PROT (test code = 3259) trace Negative - Negative POCT U GLU (test code = 3256) negative Negative - Negative POCT U KETONE (test code = 3258) . Negative - Negative POCT U UROBILI (test code = . 0.2-1 0) POCT U BILI (test code = 3261) . Negative - Negative POCT U BLD (test code = 3257) . Negative - Negative POCT U COLOR (test code = 3266) . POCT U APPEAR (test code = 3267) . [facility] URINALYSIS W/O SPECIFIC [id number] 14:56:00 Test Item Value Reference Range Interpretation Comments POCT PH U (test code = 3254) 5 mg/dl 5-8 POCT U LEUK EST (test code = 2+ Negative - Negative 3) POCT U NIT (test code = 3262) Neg Negative - Negative POCT U PROT (test code = 3259) Trace Negative - Negative POCT U GLU (test code = 3256) Neg Negative - Negative POCT U KETONE (test code = 3258) None Negative - Negative POCT U BLD (test code = 3257) Large Negative - Negative [facility] URINALYSIS W/O SPECIFIC [id number] 14:56:00 Test Item Value Reference Range Interpretation Comments POCT PH U (test code = 3254) 5 mg/dl 5-8 POCT U LEUK EST (test code = 2+ Negative - Negative 3263) POCT U NIT (test code = 3262) Neg Negative - Negative POCT U PROT (test code = 3259) Trace Negative - Negative POCT U GLU (test code = 3256) Neg Negative - Negative POCT U KETONE (test code = 3258) None Negative - Negative POCT U BLD (test code = 3257) Large Negative - Negative [facility] URINALYSIS W/O SPECIFIC [id number] 14:56:00 Test Item Value Reference Range Interpretation Comments POCT PH U (test code = 3254) 5 mg/dl 5-8 POCT U LEUK EST (test code = 2+ Negative - Negative 3263) POCT U NIT (test code = 3262) Neg Negative - Negative POCT U PROT (test code = 3259) Trace Negative - Negative POCT U GLU (test code = 3256) Neg Negative - Negative POCT U KETONE (test code = 3258) None Negative - Negative POCT U BLD (test code = 3257) Large Negative - Negative [facility] [id number] 14:55:00 Test Item Value Reference Range Interpretation Comments POCT PREG (test code = 1605) Positive On board controls acceptable with C Yes Line (test code = 3574) POCT PREG LOT # (test code = 3575) POCT PREG TEST DATE (test code = 3576) [facility] [id number] 14:55:00 Test Item Value Reference Range Interpretation Comments POCT PREG (test code = 1605) Positive On board controls acceptable with C Yes Line (test code = 3574) POCT PREG LOT # (test code = 3575) POCT PREG TEST DATE (test code = 3576) [facility] [id number] 14:55:00 Test Item Value Reference Range Interpretation Comments POCT PREG (test code = 1605) Positive On board controls acceptable with C Yes Line (test code = 3574) POCT PREG LOT # (test code = 3575) POCT PREG TEST DATE (test code = 3576) [facility] [id number] 16:26:00 Test Item Value Reference Range Interpretation Comments POCT PREG (test code = 1605) Negative On board controls acceptable with C Yes Line (test code = 3574) POCT PREG LOT # (test code = 3575) POCT PREG TEST DATE (test code = 3576) Lab Interpretation (test code = Normal 25269-2) [facility] [id number] 16:26:00 Test Item Value Reference Range Interpretation Comments POCT PREG (test code = 1605) Negative On board controls acceptable with C Yes Line (test code = 3574) POCT PREG LOT # (test code = 3575) POCT PREG TEST DATE (test code = 3576) Lab Interpretation (test code = Normal 12285-7) [facility]
[2022-09-07 15:26] LABS: Urine Blood 2+ (Negative); Urine Glucose Negative (Negative); Urine Protein 2+ (Negative); Urine Specific Gravity >=1.030 (1.005-1.030); Urine pH 5.5 (5.0-7.0)
[2022-09-07 16:00] LABS: Urine Bacteria 20-50 /HPF (<20); Urine Mucus 1+ /HPF (None Seen); Urine RBC 21-50 /HPF (None Seen); Urine WBC Clump Many /HPF (None Seen)
[2022-09-07] MEDS ORDERED: NA CHLORIDE 0.9% 1,000 ML ONE (16:03)
[2022-09-07] MEDS ORDERED: ONDANSETRON 4 MG/2 ML VIAL ONE (16:03)
[2022-09-07 16:33] LABS: Albumin 3.4 g/dL (3.4-5.0); Bilirubin Total 0.4 mg/dL (0.2-1.0); Potassium 3.6 mmol/L (3.5-5.1); Protein, Total 7.8 g/dL (6.4-8.2)
[2022-09-07 16:44] LABS: Absolute Lymphocytes (CBC) 1.1 K/uL (0.7-4.9); Hematocrit 36.3 % (36.0-45.0); Lymphocytes % 7.5 % (15.3-44.8); MCV 86.8 fL (80-100); MPV 9.5 fL (7.6-11.3); RBC Red Blood Cell Count 4.18 M/uL (3.86-4.86)
[2022-09-07] MEDS ORDERED: ACETAMINOPHEN 325 MG TABLET ONE (16:50)
[2022-09-07] MEDS ORDERED: CEFTRIAXONE 1000 MG/VIAL ONE (17:08)
--- NOTE | 2022-09-07 17:24 | RAD REPORT ---
EXAM DESCRIPTION: US - Renal Ultrasound-Complete - 09/07/2022 5:15 pm CLINICAL HISTORY: flank pain Flank pain, COMPARISON: Abdomen Exam Limited dated 12/25/2016 FINDINGS: Both kidneys are normal in size, shape and echotexture. The right kidney measures 9.1 x 3.3 x 2.9 cm. Mild right hydronephrosis. The left kidney measures 10.0 x 5.6 x 3.9 cm. No hydronephrosis, focal mass or perinephric fluid. The urinary bladder is incompletely distended without gross abnormality seen. IMPRESSION: Mild right hydronephrosis.
--- NOTE | 2022-09-07 17:49 | EDPHYS ---
Physician Documentation [facility] Name: Preethi Gamino Age: 27 yrs Sex: Female : 1995 Arrival Date: 09/07/2022 Time: 14:58 Bed 24 Private MD: ED Physician Barry Mirza HPI: 09/07 15:30 This 27 yrs old Female presents to ER via Ambulatory with complaints of 17 wks cp , Back Pain. 15:30 The patient complains of pain in the right flank. cp 15:30 Onset: The symptoms/episode began/occurred this morning. Associated signs and symptoms: cp Pertinent positives: dysuria, Pertinent negatives: diarrhea, fever, headache, pain radiating to the lower extremities, vomiting. Patient reports she is currently taking prescribed Keflex for UTI. SUPERVISOR RECLAMATION: 15:18 LMP 05/05/2022, Verified, EDC 02/09/2023, Gestational age from LMP: 17 weeks 6 kb3 days Historical: - Allergies: 15:18 No Known Allergies; kb3 - Home Meds: 15:18 Vitamin Oral [Active]; kb3 - PMHx: 15:18 Frequent UTI; kb3 - PSHx: 15:18 Appendectomy; kb3 - Immunization history:: Adult Immunizations up to date, Client reports having NOT received the Covid vaccine. - Social history:: Smoking status: Patient denies any tobacco usage or history of. ROS: 15:35 Constitutional: Negative for body aches, chills, fever, poor PO intake. cp 15:35 Eyes: Negative for injury, pain, redness, and discharge. cp 15:35 ENT: Negative for drainage from ear(s), ear pain, sore throat, difficulty swallowing, difficulty handling secretions. 15:35 Respiratory: Negative for cough, shortness of breath, wheezing. 15:35 Abdomen/GI: Negative for vomiting, diarrhea, constipation. 15:35 Back: Positive for flank pain, on the right. 15:35 : Positive for urinary symptoms, flank pain, Negative for vaginal bleeding. 15:35 Neuro: Negative for altered mental status, dizziness, headache, numbness, weakness. 15:35 All other systems are negative. Exam: 15:43 Constitutional: The patient appears in no acute distress, alert, awake, non-toxic, well cp developed, well nourished. 15:43 Head/Face: Normocephalic, atraumatic. cp 15:43 Eyes: Periorbital structures: appear normal, Conjunctiva: normal, no exudate, no injection, Sclera: no appreciated abnormality, Lids and lashes: appear normal, bilaterally. 15:43 ENT: External ear(s): are unremarkable, Nose: is normal, Mouth: Lips: moist, Oral mucosa: pink and intact, moist, Posterior pharynx: Airway: no evidence of obstruction, patent. 15:43 Chest/axilla: Inspection: normal. 15:43 Cardiovascular: Rate: normal, Rhythm: regular. 15:43 Respiratory: the patient does not display signs of respiratory distress, Respirations: normal, no use of accessory muscles, no retractions, labored breathing, is not present, Breath sounds: are clear throughout, no decreased breath sounds, no stridor, no wheezing. 15:43 Abdomen/GI: Inspection: abdomen appears normal, Bowel sounds: active, all quadrants, Palpation: soft, in all quadrants, mild abdominal tenderness, in the right lower quadrant, rebound tenderness, is not appreciated, involuntary guarding, is not appreciated. 15:43 Back: pain, that is mild, of the right mid back, ROM is normal. 15:43 Neuro: Orientation: to person, place \T\ time. Mentation: is normal, Motor: moves all fours, strength is normal, Sensation: is normal. Vital Signs: 15:13 BP 120 / 86; Pulse 83; Resp 20; Temp 98.6; Pulse Ox 100% ; Weight 54.43 kg; Height 5 kb3 ft. 6 in. (167.64 cm); Pain 10/10; 16:53 BP 107 / 91; Pulse 79; Resp 16; Pulse Ox 100% on R/A; Pain 7/10; hb 17:14 BP 114 / 78; Pulse 89; Resp 16; Pulse Ox 99% on R/A; jl7 15:13 Body Mass Index 19.37 (54.43 kg, 167.64 cm) kb3 MDM: 15:23 Patient medically screened. cp 17:48 Data reviewed: vital signs, nurses notes, lab test result(s), radiologic studies, cp ultrasound. 17:48 Differential diagnosis: nephrolithiasis, pyelonephritis, UTI, appendicitis. Counseling: cp I had a detailed discussion with the patient and/or guardian regarding: the historical points, exam findings, and any diagnostic results supporting the discharge/admit diagnosis, lab results, radiology results, the need for outpatient follow up, an OB/Gyne specialist, to return to the emergency department if symptoms worsen or persist or if there are any questions or concerns that arise at home. ED course: VSS. Patient appears non-toxic and tolerating po. Will have patient start oral Vantin and discharge to home to continue to monitor symptoms. 09/07 15:23 Order name: Urine Microscopic Only; Complete Time: 16:46 09/07 16:47 Interpretation: Normal except: UWBC >50; URBC 21-50; UBACT 20-50; UWBC Clump Many. 09/07 15:26 Order name: Urine Dipstick-Ancillary; Complete Time: 15:36 EDMS 09/07 17:02 Interpretation: UKET 2+; UBLD 2+; UPROT 2+; UNIT Positive; UESTR 3+; Reviewed. 09/07 15:37 Order name: CBC with Diff; Complete Time: 16:46 09/07 16:47 Interpretation: Normal except: WBC 14.70; ROXANE% 85.6; LYM% 7.5; NEUT A 12.6. 09/07 15:37 Order name: CMP; Complete Time: 16:46 09/07 15:37 Order name: Lipase; Complete Time: 16:46 09/07 15:23 Order name: Urine Dipstick-Ancillary (obtain specimen); Complete Time: 15:29 09/07 15:26 Order name: FHT's; Complete Time: 16:11 09/07 15:37 Order name: IV Saline Lock; Complete Time: 16:11 09/07 16:52 Order name: US Rp Exam Complete; Complete Time: 17:25 09/07 15:37 Order name: Labs collected and sent; Complete Time: 16:11 cp Administered Medications: 16:10 Drug: Zofran (Ondansetron) 4 mg Route: IVP; Site: right antecubital; hb 17:00 Follow up: Response: No adverse reaction hb 16:11 Drug: NS 0.9% 1000 ml Route: IV; Rate: 1 bolus; Site: right antecubital; hb 17:15 Follow up: Response: No adverse reaction; IV Status: Completed infusion; IV Intake: hb 1000ml 16:52 Drug: Acetaminophen 650 mg Route: PO; hb 17:00 Follow up: Response: No adverse reaction hb 17:14 Drug: Rocephin (cefTRIAXone) 1 grams Route: IV; Rate: calculated rate; Site: right hb antecubital; 22:20 Follow up: Response: No adverse reaction hb Disposition Summary: 09/07/22 17:48 Discharge Ordered Location: Home cp Problem: new cp Symptoms: have improved cp Condition: Stable cp Diagnosis - Pyelonephritis acute cp - Other specified related conditions, second trimester cp Followup: cp - With: Private Physician - When: 2 - 3 days - Reason: Recheck today's complaints Discharge Instructions: - Discharge Summary Sheet cp - Pyelonephritis, Adult cp Forms: - Medication Reconciliation Form cp - Thank You Letter cp - Antibiotic Education cp - Prescription Opioid Use cp - Work release form eb Prescriptions: - Zofran 4 mg Oral Tablet - take 1 tablet by ORAL route every 12 hours As needed; 20 tablet; Refills: 0, cp Product Selection Permitted - cefpodoxime 200 mg Oral Tablet - take 1 tablet by ORAL route every 12 hours for 10 days with food; 20 tablet; cp Refills: 0, Product Selection Permitted Signatures: Dispatcher [employer] EDMS Marlon Hankins PA PA cp Michelle Carvalho, RN RN Lamar Salas RN RN kb3 Corrections: (The following items were deleted from the chart) 15:19 15:18 Home Meds: promethazine 25 mg Oral tab 1 tab once daily; kb3 kb3 15:19 15:18 PMHx: None; kb3 kb3 17:02 15:36 Reviewed. cp cp
--- NOTE | 2022-09-07 17:49 | ER ---
Nurse's Notes [facility] Name: Preethi Gamino Age: 27 yrs Sex: Female : 1995 Arrival Date: 09/07/2022 Time: 14:58 Bed 24 Private MD: Diagnosis: Pyelonephritis acute;Other specified related conditions, second trimester Presentation: 09/07 15:13 Chief complaint: Patient states: right flank pain since this morning. Pt came to ER kb3 from OB office where she was evaluated for ongoing UTI and has been taking cephalexin for the last 7 days. A2, EDC 02/09/2023. Coronavirus screen: Vaccine status: Patient reports being unvaccinated. Client denies travel out of the [place] in the last 14 days. Ebola Screen: Patient negative for fever greater than or equal to 101.5 degrees Fahrenheit, and additional compatible Ebola Virus Disease symptoms Patient denies exposure to infectious person. Patient denies travel to an Ebola-affected area in the 21 days before illness onset. Initial Sepsis Screen: Does the patient meet any 2 criteria? No. Patient's initial sepsis screen is negative. Does the patient have a suspected source of infection? No. Patient's initial sepsis screen is negative. Risk Assessment: Do you want to hurt yourself or someone else? Patient reports no desire to harm self or others. Onset of symptoms was September 07, 2022 at 07:00. 15:13 Method Of Arrival: Ambulatory kb3 15:13 Acuity: MAICO 3 kb3 Triage Assessment: 15:18 General: Appears in no apparent distress. Behavior is calm, cooperative. Pain: kb3 Complains of pain in right low back Pain radiates to suprapubic area and right lower quadrant. : Reports burning with urination, pain urgency, urinary frequency. 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 - Social history:: Smoking status: Patient denies any tobacco usage or history of. Screenin:[facility] ED Fall Risk Assessment (Adult) History of falling in the last 3 months, hb including since admission No falls in past 3 months (0 pts) Confusion or Disorientation No (0 pts) Intoxicated or Sedated No (0 pts) Impaired Gait No (0 pts) Mobility Assist Device Used No (0 pt) Altered Elimination No (0 pt) Score/Fall Risk Level 0 - 2 = Low Risk Oriented to surroundings, Maintained a safe environment. Abuse screen: Denies threats or abuse. Denies injuries from another. Nutritional screening: No deficits noted. Tuberculosis screening: No symptoms or risk factors identified. Fall Risk Total Faye Fall Scale indicates No Risk (0-24 pts). Assessment: 16:10 General: Appears in no apparent distress. Behavior is calm, cooperative. Pain: Pain hb currently is 6 out of 10 on a pain scale. at worst was 10 out of 10 on a pain scale. Neuro: Level of Consciousness is awake, alert, obeys commands, Oriented to person, place, time, situation. Cardiovascular: Patient's skin is warm and dry. Respiratory: Respiratory effort is even, unlabored, Respiratory pattern is regular, symmetrical. GI: Reports nausea. : Reports right flank pain. EENT: No signs and/or symptoms were reported regarding the EENT system. Derm: Skin is pink, warm \T\ dry. Musculoskeletal: Reports right flank pain. 16:53 Reassessment: Patient appears in no apparent distress at this time. Patient and/or hb family updated on plan of care and expected duration. Pain level reassessed. Patient is alert, oriented x 3, equal unlabored respirations, skin warm/dry/pink. 17:14 Reassessment: Patient appears in no apparent distress at this time. Patient and/or hb family updated on plan of care and expected duration. Pain level reassessed. Patient is alert, oriented x 3, equal unlabored respirations, skin warm/dry/pink. Vital Signs: 15:13 BP 120 / 86; Pulse 83; Resp 20; Temp 98.6; Pulse Ox 100% ; Weight 54.43 kg; Height 5 kb3 ft. 6 in. (167.64 cm); Pain 10/10; 16:53 BP 107 / 91; Pulse 79; Resp 16; Pulse Ox 100% on R/A; Pain 7/10; hb 17:14 BP 114 / 78; Pulse 89; Resp 16; Pulse Ox 99% on R/A; jl7 15:13 Body Mass Index 19.37 (54.43 kg, 167.64 cm) kb3 Vitals: 16:11 Heart Tones 162, variable. hb ED Course: 14:58 Patient arrived in ED. mr 14:58 Marlon Hankins PA is PHCP. cp 14:58 Barry Mirza MD is Attending Physician. cp 15:18 Triage completed. kb3 15:18 Arm band placed on right wrist. kb3 15:25 Michelle Carvalho, ANGI is Primary Nurse. hb 15:29 Urine Microscopic Only Sent. hb 16:06 Initial lab(s) drawn, by me, sent to lab. Inserted saline lock: 22 gauge in right tm3 antecubital area, using aseptic technique. 16:10 Patient has correct armband on for positive identification. hb 17:14 US Rp Exam Complete Sent. hb 17:16 US Rp Exam Complete In Process Unspecified. EDMS 18:12 No provider procedures requiring assistance completed. IV discontinued, intact, hb bleeding controlled, No redness/swelling at site. Administered Medications: 16:10 Drug: Zofran (Ondansetron) 4 mg Route: IVP; Site: right antecubital; hb 17:00 Follow up: Response: No adverse reaction hb 16:11 Drug: NS 0.9% 1000 ml Route: IV; Rate: 1 bolus; Site: right antecubital; hb 17:15 Follow up: Response: No adverse reaction; IV Status: Completed infusion; IV Intake: hb 1000ml 16:52 Drug: Acetaminophen 650 mg Route: PO; hb 17:00 Follow up: Response: No adverse reaction hb 17:14 Drug: Rocephin (cefTRIAXone) 1 grams Route: IV; Rate: calculated rate; Site: right hb antecubital; 22:20 Follow up: Response: No adverse reaction hb Medication: 16:10 VIS not applicable for this client. hb Intake: 17:15 IV: 1000ml; Total: 1000ml. hb Outcome: 17:48 Discharge ordered by MD. cp 18:12 Discharged to home ambulatory. hb 18:12 Condition: stable 18:12 Discharge instructions given to patient, Instructed on discharge instructions, follow up and referral plans. medication usage, Demonstrated understanding of instructions, follow-up care, medications, Prescriptions given X 2. 18:12 Patient left the ED. Signatures: Dispatcher [employer] EDMS Nick Puga Mary mr Marlon Hankins PA PA cp Baxter, Heather, RN RN Ezra Rodriguez RN RN jl7 Lamar Salas, RN RN kb3 Corrections: (The following items were deleted from the chart) 15:19 15:18 Home Meds: promethazine 25 mg Oral tab 1 tab once daily; [email or web address] 15:19 15:18 PMHx: None; [facility] kb3 15:27 15:13 Chief complaint: Patient states: right flank pain since this morning. Pt came to 3 ER from OB office where she was evaluated for ongoing UTI and has been taking cephalexin for the last 7 days. 3 17:30 17:14 BP 114 / 78; Pulse 16bpm; Resp 89bpm; Pulse Ox 99% RA; hb jl7
[2022-09-07 18:21] VITALS: TEMP 98.6
[2022-09-07 18:23] VITALS: BP 114/78; O2SAT 99
== END 2022-09-07 18:12 | disposition home or self-care (01) ==
LOC: ER 14:54
DX: O23.02 Infections of kidney in pregnancy, second trimester (principal); Z3A.17 17 weeks gestation of pregnancy
CPT/HCPCS: 96361; 85025; 36415; 83690; 80053; 76770; 96375; 96374; 99284; J7030; J2405; 81003; 81015

== ENCOUNTER 2022-10-11 13:24 | Emergency (ER) | payer OTHER ==
--- OUTSIDE RECORDS SUMMARY | 2022-10-11 13:30 | XMS REPORT | Continuity of Care Document ---
:1995 Author Organization [facility] t Address [address] [place] [address] Care Team Providers Name Role Phone Asked, No Pcp Primary Care Physician Unavailable LISSY BAI Attending Clinician Unavailable DAYSI SHAW Attending Clinician Unavailable TIMO JOLLEY Attending Clinician Unavailable TIMO JOLLEY Attending Clinician Unavailable Timo Jolley MD Attending Clinician Doctor Unassigned, [place] Attending Clinician Unavailable Daysi De Attending Clinician [phone] Ultrasound, [place] Attending Clinician Unavailable Hamida Radford MD Attending Clinician [phone] HAMIDA RADFORD Attending Clinician Unavailable Lucía Patiño CNM Attending Clinician LUCÍA PATIÑO Attending Clinician Unavailable Provider, Arden Temp Attending Clinician Unavailable LabAlvin-Rmchp Attending Clinician Unavailable Luz Maria Warren DO Attending Clinician 1, [facility] Attending Clinician Unavailable Lissy Funez Attending Clinician Lab, Ang-Rmchp Attending Clinician Unavailable Arielle Glass Attending Clinician ARIELLE RAJPUT Attending Clinician Unavailable Visit, Ang-Rmchp Nurse Attending Clinician Unavailable LORNA KIRKPATRICK Attending Clinician Unavailable Lorna Snow Attending Clinician Jayjay WHITLEY, Mercedes Guy Attending Clinician Unavailable Marnie Hartman Attending Clinician LORNA KIRKPATRICK Admitting Clinician Unavailable Payers Payer Name Policy Type Policy Number Effective Date Expiration Date S john [place] [id number] 2018 00:00:00 [place] [id number] 2022 00:00:00 Problems Condition Condition Condition Status Onset Resolution Last Treating Co mments Source Name Details Category Date Date Treatment Clinician Date 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 Pending colpo Placenta Placenta Disease Active 2021-09 Overview: Un blanche previa previa Formattin ity of antepartum antepartum 00:00: g of this [place] 00 note Medical might be Branch different from the original. Follow up anatomy in 6 weeks and placenta location at 32 weeks History of History of Disease Active 2021-09 Overview : Univers abnormal abnormal 10-19 [place] ity of cervical cervical 00:00: g of this [place] as Pap smear Pap smear 00 note [facility] valdo might be Branch different from the original. 12/2018 LGSIL12/2 021 ASCUS with +HPV03/20 22 negative colpo H/O H/O Disease Active 2021-09 Univers syncope syncope 1-27 ity of 00:00: [place] 00 Medical Branch UTI in UTI in Disease Active 2021-09 Univers 0-26 ity of 00:00: [place] 00 Medical Branch Supervisio Supervisio Disease Active U nivers n of n of 9-27 [place] of high-risk high[place]risk [place] [facility] [place] Multiparit Multiparit Disease Active U nivers y y 9- ity of 00:00: [place] [facility] History of History of Disease Active U nivers miscarriag miscarriag 06-19 it y of e e 00:00: [address] Routine Routine Disease Active Univers 1-24 [place] [address] [place] [address] ASCUS with ASCUS with Disease Active Overview : Univers positive positive 1-11 [place] it[place] of high risk high risk 00:00: [place] HPV HPV 00 note Medical cervical cervical might be Bran ch different from the original. No SEAN noted on bx. Will need cotesting in 12 months (08/2022) . UTI in UTI in Disease Active 2020-09 Overview: Univer s Formattin i ty of 00:00: g of this [place] note Medical might be Branch different from the original. neg SAROJ Gonorrhea Gonorrhea Disease Active 2020-09 Overview: Univers in in [place]att[place] ity of 00:00: [place] 00 note Medical might be Branch different from the original. Pending SAROJ Papanicola Papanicola Disease Active Overview : Univers ou smear ou smear 01-20 Formattin ity of of cervix of cervix [...] vaccine 4-17 ity of need need 00:00: [address] No known No known Disease Metho di active active st problems problems Hospit a l Allergies, Adverse Reactions, Alerts Allergy Allergy Status Severity Reaction(s) Onset Inactive Treating Comm ents Source Name Type Date Date Clinician NO KNOWN Drug Active Univers ALLERGIE Class ity of S [facility] Social History Social Habit Start Date Stop Date Quantity Comments Source ASSERTION 2022-05-19 [facility] 00:00:00 [facility] Exposure to 2022-09-22 2022-10-02 Not sure [facility] SARS-CoV-2 00:00:00 10:41:00 [facility] (event) [place] Alcohol intake 2022-09-07 2022-09-07 0 /d [facility] 00:00:00 00:00:00 [facility] Tobacco use and 2022-06-19 2022-06-19 Smokeless tobacco Un iversity of exposure 00:00:00 00:00:00 non-user [facility] Sex [birth year] [facility] 00:00:00 00:00:00 Hospital Smoking Status Start Date Stop Date Source Tobacco smoking consumption Meth [facility] unknown Never smoked tobacco [facility] Medications Ordered Filled Start Stop Current Ordering Indication Dosage Frequency Signature Comments Components Source Medication Medication Date Date Medication? Clinician (SIG) Name Name metroNIDAZO 2021-09 Yes [id number] 500mg Take 1 Univers LE 500 mg 2-20 tablet by ity o f tablet 00:00: mouth in [place] [address] the Medical morning Branch and 1 tablet in the evening. metroNIDAZO 2021-09 Yes [id number] 500mg Take 1 Univers LE 500 mg 2-20 tablet by ity o f tablet 00:00: mouth in [place] 00 the Medical morning Branch and 1 tablet in the evening. metroNIDAZO 2021-09 Yes [id number] 500mg Take 1 Univers LE 500 mg 2-20 tablet by ity o f tablet 00:00: mouth in [place] 00 the Medical morning Branch and 1 tablet in the evening. metroNIDAZO 2021-09 Yes [id number] 500mg Take 1 Univers LE 500 mg 2-20 tablet by ity o f tablet 00:00: mouth in [place] 00 the Medical morning Branch and 1 tablet in the evening. metroNIDAZO 2021-09 Yes [id number] 500mg Take 1 Univers LE 500 mg 2-20 tablet by ity o f tablet 00:00: mouth in [place] 00 the Medical morning Branch and 1 tablet in the evening. metroNIDAZO 2021-09 Yes [id number] 500mg Take 1 Univers LE 500 mg 2-20 tablet by ity o f tablet 00:00: mouth in [place] 00 the Medical morning Branch and 1 tablet in the evening. metroNIDAZO 2021-09 Yes [id number] 500mg Take 1 Univers LE 500 mg 2-20 tablet by ity o f tablet 00:00: mouth in [place] [address] the Medical morning Branch and 1 tablet in the evening. metroNIDAZO 2021-09 Yes [id number] 500mg Take 1 Univers LE 500 mg 2-20 tablet by ity o f tablet 00:00: mouth in [place] 00 the Medical morning Branch and 1 tablet in the evening. metroNIDAZO 2021-09 Yes [id number] 500mg Take 1 Univers LE 500 mg 2-20 tablet by ity o f tablet 00:00: mouth in [place] 00 the Medical morning Branch and 1 tablet in the evening. metroNIDAZO 2021-09 Yes [id number] 500mg Take 1 Univers LE 500 mg 2-20 tablet by ity o f tablet 00:00: mouth in [place] 00 the Medical morning Branch and 1 tablet in the evening. fluconazole 2021-09- Yes [id number] 150mg Take 1 Univers (DIFLUCAN) 2-20 12-21 tablet by ity of 150 mg 00:00: 05:59 [place] tablet 00 :00 now for 1 Medical dose. Branch fluconazole 2021-09- Yes [id number] 150mg Take 1 Univers (DIFLUCAN) 2-20 12-21 tablet by ity of 150 mg 00:00: 05:59 [place] tablet 00 :00 now for 1 Medical dose. Branch cephALEXin 2021-09- Yes [id number] 500mg Take 1 Univers (KEFLEX) 1-27 12-08 capsule by ity of 500 mg 00:00: 05:59 mouth 4 [place] capsule 00 :00 (four) Medical times Branch daily for 10 days. proMETHazin 2021-09 Yes [id number] 25mg Take 1 Univers e 25 mg 0-26 tablet by ity of tablet 00:00: mouth [place] 00 every 6 Medical (six) Branch hours as needed for Nausea and Vomiting (N/V). proMETHazin 2021-09 Yes [id number] 25mg Take 1 Univers e 25 mg 0-26 tablet by ity of tablet 00:00: mouth [place] 00 every 6 Medical (six) Branch hours as needed for Nausea and Vomiting (N/V). proMETHazin 2021-09 Yes [id number] 25mg Take 1 Univers e 25 mg 0-26 tablet by ity of tablet 00:00: mouth [place] 00 every 6 Medical (six) Branch hours as needed for Nausea and Vomiting (N/V). proMETHazin 2021-09 Yes [id number] 25mg Take 1 Univers e 25 mg 0-26 tablet by ity of tablet 00:00: mouth [place] 00 every 6 Medical (six) Branch hours as needed for Nausea and Vomiting (N/V). proMETHazin 2021-09 Yes [id number] 25mg Take 1 Univers e 25 mg 0-26 tablet by ity of tablet 00:00: mouth [place] 00 every 6 Medical (six) Branch hours as needed for Nausea and Vomiting (N/V). proMETHazin 2021-09 Yes [id number] 25mg Take 1 Univers e 25 mg 0-26 tablet by ity of tablet 00:00: mouth [place] 00 every 6 Medical (six) Branch hours as needed for Nausea and Vomiting (N/V). proMETHazin 2021-09 Yes [id number] 25mg Take 1 Univers e 25 mg 0-26 tablet by ity of tablet 00:00: mouth [place] 00 every 6 Medical (six) Branch hours as needed for Nausea and Vomiting (N/V). proMETHazin 2021-09 Yes [id number] 25mg Take 1 Univers e 25 mg 0-26 tablet by ity of tablet 00:00: mouth [place] 00 every 6 Medical (six) Branch hours as needed for Nausea and Vomiting (N/V). proMETHazin 2021-09 Yes [id number] 25mg Take 1 Univers e 25 mg 0-26 tablet by ity of tablet 00:00: mouth [place] 00 every 6 Medical (six) Branch hours as needed for Nausea and Vomiting (N/V). proMETHazin 2021-09 Yes [id number] 25mg Take 1 Univers e 25 mg 0-26 tablet by ity of tablet 00:00: mouth [place] 00 every 6 Medical (six) Branch hours as needed for Nausea and Vomiting (N/V). proMETHazin 2021-09 Yes [id number] 25mg Take 1 Univers e 25 mg 0-26 tablet by ity of tablet 00:00: mouth [place] 00 every 6 Medical (six) Branch hours as needed for Nausea and Vomiting (N/V). proMETHazin 2021-09 Yes [id number] 25mg Take 1 Univers e 25 mg 0-26 tablet by ity of tablet 00:00: mouth [place] 00 every 6 Medical (six) Branch hours as needed for Nausea and Vomiting (N/V). proMETHazin 2021-09 Yes [id number] 25mg Take 1 Univers e 25 mg 0-26 tablet by ity of tablet 00:00: mouth [place] 00 every 6 Medical (six) Branch hours as needed for Nausea and Vomiting (N/V). proMETHazin 2021-09 Yes [id number] 25mg Take 1 Univers e 25 mg 0-26 tablet by ity of tablet 00:00: mouth [place] 00 every 6 Medical (six) Branch hours as needed for Nausea and Vomiting (N/V). proMETHazin 2021-09 Yes [id number] 25mg Take 1 Univers e 25 mg 0-26 tablet by ity of tablet 00:00: mouth [place] 00 every 6 Medical (six) Branch hours as needed for Nausea and Vomiting (N/V). proMETHazin 2021-09 Yes [id number] 25mg Take 1 Univers e 25 mg 0-26 tablet by ity of tablet 00:00: mouth [place] 00 every 6 Medical (six) Branch hours as needed for Nausea and Vomiting (N/V). proMETHazin 2021-09 Yes [id number] 25mg Take 1 Univers e 25 mg 0-26 tablet by ity of tablet 00:00: mouth [place] 00 every 6 Medical (six) Branch hours as needed for Nausea and Vomiting (N/V). proMETHazin 2021-09 Yes [id number] 25mg Take 1 Univers e 25 mg 0-26 tablet by ity of tablet 00:00: mouth [place] 00 every 6 Medical (six) Branch hours as needed for Nausea and Vomiting (N/V). proMETHazin 2021-09 Yes [id number] 25mg Take 1 Univers e 25 mg 0-26 tablet by ity of tablet 00:00: mouth [place] 00 every 6 Medical (six) Branch hours as needed for Nausea and Vomiting (N/V). proMETHazin 2021-09 Yes [id number] 25mg Take 1 Univers e 25 mg 0-26 tablet by ity of tablet 00:00: mouth [place] 00 every 6 Medical (six) Branch hours as needed for Nausea and Vomiting (N/V). proMETHazin 2021-09 Yes [id number] 25mg Take 1 Univers e 25 mg 0-26 tablet by ity of tablet 00:00: mouth [place] 00 every 6 Medical (six) Branch hours as needed for Nausea and Vomiting (N/V). proMETHazin 2021-09 Yes [id number] 25mg Take 1 Univers e 25 mg 0-26 tablet by ity of tablet 00:00: mouth [place] 00 every 6 Medical (six) Branch hours as needed for Nausea and Vomiting (N/V). proMETHazin 2021-09 Yes [id number] 25mg Take 1 Univers e 25 mg 0-26 tablet by ity of tablet 00:00: mouth [place] 00 every 6 Medical (six) Branch hours as needed for Nausea and Vomiting (N/V). proMETHazin 2021-09 Yes [id number] 25mg Take 1 Univers e 25 mg 0-26 tablet by ity of tablet 00:00: mouth [place] 00 every 6 Medical (six) Branch hours as needed for Nausea and Vomiting (N/V). Nitrofurant 2021- No [id number] 100mg Take 1 Univers oin&Nit. 9-30 10-11 capsule by ity of [place] 00:00: 04:59 mouth in [place] (MACROBID) 00 :00 the Medical 100 mg morning Branch capsule and 1 capsule in the evening. Do all this for 10 days. Nitrofurant 2021- No [id number] 100mg Take 1 Univers oin&Nit. 9-30 10-11 capsule by ity of [place] 00:00: 04:59 mouth in [place] (MACROBID) 00 :00 the Medical 100 mg morning Branch capsule and 1 capsule in the evening. Do all this for 10 days. Nitrofurant 2021- No [id number] 100mg Take 1 Univers oin&Nit. 9-30 10-11 capsule by ity of [place] 00:00: 04:59 mouth in [place] (MACROBID) 00 :00 the Medical 100 mg morning Branch capsule and 1 capsule in the evening. Do all this for 10 days. Nitrofurant 2021- No [id number] 100mg Take 1 Univers oin&Nit. 9-30 10-11 capsule by ity of [place] 00:00: 04:59 mouth in [place] (MACROBID) 00 :00 the Medical 100 mg morning Branch capsule and 1 capsule in the evening. Do all this for 10 days. Yes [id number] 1{tbl} Take 1 U nivers multivitami 9-27 tablet by ity of n ( 00:00: mouth in [place] VITAMIN) 00 the Medical tablet morning. Branch Yes [id number] 1{tbl} Take 1 U nivers multivitami 9-27 tablet by ity of n ( 00:00: mouth in [place] VITAMIN) 00 the Medical tablet morning. Branch Yes [id number] 1{tbl} Take 1 U nivers multivitami 9-27 tablet by ity of n ( 00:00: mouth in [place] VITAMIN) 00 the Medical tablet morning. Branch Yes [id number] 1{tbl} Take 1 U nivers multivitami 9-27 tablet by ity of n ( 00:00: mouth in [place] VITAMIN) 00 the Medical tablet morning. [place] Yes [id number] 1{tbl} Take 1 U nivers multivitami 9-27 tablet by ity of n ( 00:00: mouth in [place] VITAMIN) 00 the Medical tablet morning. [place] Yes [id number] 1{tbl} Take 1 U nivers multivitami 9-27 tablet by ity of n ( 00:00: mouth in [place] VITAMIN) 00 the Medical tablet morning. [place] Yes [id number] 1{tbl} Take 1 U nivers multivitami 9-27 tablet by ity of n ( 00:00: mouth in [place] VITAMIN) 00 the Medical tablet morning. [place] Yes [id number] 1{tbl} Take 1 U nivers multivitami 9-27 tablet by ity of n ( 00:00: mouth in [place] VITAMIN) 00 the Medical tablet morning. [place] Yes [id number] 1{tbl} Take 1 U nivers multivitami 9-27 tablet by ity of n ( 00:00: mouth in [place] VITAMIN) 00 the Medical tablet morning. [place] Yes [id number] 1{tbl} Take 1 U nivers multivitami 9-27 tablet by ity of n ( 00:00: mouth in [place] VITAMIN) 00 the Medical tablet morning. [place] Yes [id number] 1{tbl} Take 1 U nivers multivitami 9-27 tablet by ity of n ( 00:00: mouth in [place] VITAMIN) 00 the Medical tablet morning. [place] Yes [id number] 1{tbl} Take 1 U nivers multivitami 9-27 tablet by ity of n ( 00:00: mouth in [place] VITAMIN) 00 the Medical tablet morning. [place] Yes [id number] 1{tbl} Take 1 U nivers multivitami 9-27 tablet by ity of n ( 00:00: mouth in [place] VITAMIN) 00 the Medical tablet morning. [place] Yes [id number] 1{tbl} Take 1 U nivers multivitami 9-27 tablet by ity of n ( 00:00: mouth in [place] VITAMIN) 00 the Medical tablet morning. [place] Yes [id number] 1{tbl} Take 1 U nivers multivitami 9-27 tablet by ity of n ( 00:00: mouth in [place] VITAMIN) 00 the Medical tablet morning. [place] Yes [id number] 1{tbl} Take 1 U nivers multivitami 9-27 tablet by ity of n ( 00:00: mouth in [place] VITAMIN) 00 the Medical tablet morning. [place] Yes [id number] 1{tbl} Take 1 U nivers multivitami 9-27 tablet by ity of n ( 00:00: mouth in [place] VITAMIN) 00 the Medical tablet morning. [place] Yes [id number] 1{tbl} Take 1 U nivers multivitami 9-27 tablet by ity of n ( 00:00: mouth in [place] VITAMIN) 00 the Medical tablet morning. [place] Yes [id number] 1{tbl} Take 1 U nivers multivitami 9-27 tablet by ity of n ( 00:00: mouth in [place] VITAMIN) 00 the Medical tablet morning. [place] Yes [id number] 1{tbl} Take 1 U nivers multivitami 9-27 tablet by ity of n ( 00:00: mouth in [place] VITAMIN) 00 the Medical tablet morning. [place] Yes [id number] 1{tbl} Take 1 U nivers multivitami 9-27 tablet by ity of n ( 00:00: mouth in [place] VITAMIN) 00 the Medical tablet morning. [place] Yes [id number] 1{tbl} Take 1 U nivers multivitami 9-27 tablet by ity of n ( 00:00: mouth in [place] VITAMIN) 00 the Medical tablet morning. Branch Yes [id number] 1{tbl} Take 1 U nivers multivitami 9-27 tablet by ity of n ( 00:00: mouth in [place] VITAMIN) 00 the Medical tablet morning. Branch Yes [id number] 1{tbl} Take 1 U nivers multivitami 9-27 tablet by ity of n ( 00:00: mouth in [place] VITAMIN) 00 the Medical tablet morning. [place] Yes [id number] 1{tbl} Take 1 U nivers multivitami 9-27 tablet by ity of n ( 00:00: mouth in [place] VITAMIN) 00 the Medical tablet morning. [place] Yes [id number] 1{tbl} Take 1 U nivers multivitami 9-27 tablet by ity of n ( 00:00: mouth in [place] VITAMIN) 00 the Medical tablet morning. [place] Yes [id number] 1{tbl} Take 1 U nivers multivitami 9-27 tablet by ity of n ( 00:00: mouth in [place] VITAMIN) 00 the Medical tablet morning. [place] Yes [id number] 1{tbl} Take 1 U nivers multivitami 9-27 tablet by ity of n ( 00:00: mouth in [place] VITAMIN) 00 the Medical tablet morning. [place] Yes [id number] 1{tbl} Take 1 U nivers multivitami 9-27 tablet by ity of n ( 00:00: mouth in [place] VITAMIN) 00 the Medical tablet morning. [place] Yes [id number] 1{tbl} Take 1 U nivers multivitami 9-27 tablet by ity of n ( 00:00: mouth in [place] VITAMIN) 00 the Medical tablet morning. [place] Yes [id number] 1{tbl} Take 1 U nivers multivitami 9-27 tablet by ity of n ( 00:00: mouth in [place] VITAMIN) 00 the Medical tablet morning. Branch Yes [id number] 1{tbl} Take 1 U nivers multivitami 9-27 tablet by ity of n ( 00:00: mouth in [place] VITAMIN) 00 the Medical tablet morning. Branch Yes [id number] 1{tbl} Take 1 U nivers multivitami 9-27 tablet by ity of n ( 00:00: mouth in [place] VITAMIN) 00 the Medical tablet morning. Branch No known No Univers medications 3-10 ity of 11:56: [place] 40 Medical Branch Nitrofurant 2020-09- No [id number] 100mg Take 1 Univers oin&Nit. 2-31 03-10 capsule by ity of [place] 00:00: 00:00 mouth 2 [place] (MACROBID) 00 :00 (two) Medical 100 mg times Branch capsule daily. Nitrofurant 2020-09- No [id number] 100mg Take 1 Univers oin&Nit. 2-31 03-10 capsule by ity of [place] 00:00: 00:00 mouth 2 [place] (MACROBID) 00 :00 (two) Medical 100 mg times Branch capsule daily. 2020-09- No [id number] 1{tbl} Take 1 Univers multivitami 2-27 03-10 tablet by it y of n ( 00:00: [place] VITAMIN[place] 00 :00 daily. Medical tablet Branch 2020-09- No [id number] 1{tbl} Take 1 Univers multivitami 2-27 03-10 tablet by it y of n ( 00:00: [place] VITAMIN) 00 :00 daily. Medical tablet Branch No known No No known Metho di medications 2-[address] [facility] No known 2019- No No known Metho di medications 2-14 [...] y of Vaccine Quad IM 3+ 00:00:00 [facility] Influenza Virus 2016-09-13 Completed Universit y of Vaccine Quad IM 3+ 00:00:00 [facility] Influenza Virus 2016-09-13 Completed Universit y of Vaccine Quad IM 3+ 00:00:00 [facility] Influenza Virus 2016-09-13 Completed Universit y of Vaccine Quad IM 3+ 00:00:00 [facility] Influenza Virus 2016-09-13 Completed Universit y of Vaccine Quad IM 3+ 00:00:00 [facility] Influenza Virus 2016-09-13 Completed Universit y of Vaccine Quad IM 3+ 00:00:00 [facility] Influenza Virus 2016-09-13 Completed Universit y of Vaccine Quad IM 3+ 00:00:00 [facility] Influenza Virus 2016-09-13 Completed Universit y of Vaccine Quad IM 3+ 00:00:00 [facility] Influenza Virus 2016-09-13 Completed Universit y of Vaccine Quad IM 3+ 00:00:00 [facility] Influenza Virus 2016-09-13 Completed Universit y of Vaccine Quad IM 3+ 00:00:00 [facility] Influenza Virus 2016-09-13 Completed Universit y of Vaccine Quad IM 3+ 00:00:00 [facility] Influenza Virus 2016-09-13 Completed Universit y of Vaccine Quad IM 3+ 00:00:00 [facility] Influenza Virus 2016-09-13 Completed Universit y of Vaccine Quad IM 3+ 00:00:00 [facility] Influenza Virus 2016-09-13 Completed Universit y of Vaccine Quad IM 3+ 00:00:00 [facility] Influenza Virus 2016-09-13 Completed Universit y of Vaccine Quad IM 3+ 00:00:00 [facility] Influenza Virus 2016-09-13 Completed Universit y of Vaccine Quad IM 3+ 00:00:00 [facility] Influenza Virus 2016-09-13 Completed Universit y of Vaccine Quad IM 3+ 00:00:00 [facility] Influenza Virus 2016-09-13 Completed Universit y of Vaccine Quad IM 3+ 00:00:00 [facility] Influenza Virus 2016-09-13 Completed Universit y of Vaccine Quad IM 3+ 00:00:00 [facility] Influenza Virus 2016-09-13 Completed Universit y of Vaccine Quad IM 3+ 00:00:00 [facility] Influenza Virus 2016-09-13 Completed Universit y of Vaccine Quad IM 3+ 00:00:00 [facility] Influenza Virus 2016-09-13 Completed Universit y of Vaccine Quad IM 3+ 00:00:00 [facility] Influenza Virus 2016-09-13 Completed Universit y of Vaccine Quad IM 3+ 00:00:00 [facility] Influenza Virus 2016-09-13 Completed Universit y of Vaccine Quad IM 3+ 00:00:00 [facility] Influenza Virus 2016-09-13 Completed Universit y of Vaccine Quad IM 3+ 00:00:00 [facility] Influenza Virus 2016-09-13 Completed Universit y of Vaccine Quad IM 3+ 00:00:00 [facility] Influenza Virus 2016-09-13 Completed Universit y of Vaccine Quad IM 3+ 00:00:00 [facility] Influenza Virus 2016-09-13 Completed Universit y of Vaccine Quad IM 3+ 00:00:00 [facility] Influenza Virus 2016-09-13 Completed Universit y of Vaccine Quad IM 3+ 00:00:00 [facility] Influenza Virus 2016-09-13 Completed Universit y of Vaccine Quad IM 3+ 00:00:00 [facility] Influenza Virus 2016-09-13 Completed Universit y of Vaccine Quad IM 3+ 00:00:00 [facility] Influenza Virus 2016-09-13 Completed Universit y of Vaccine Quad IM 3+ 00:00:00 [facility] Influenza Virus 2016-09-13 Completed Universit y of Vaccine Quad IM 3+ 00:00:00 [facility] Influenza Virus 2016-09-13 Completed Universit y of Vaccine Quad IM 3+ 00:00:00 [facility] Influenza Virus 2016-09-13 Completed Universit y of Vaccine Quad IM 3+ 00:00:00 [facility] Influenza Virus 2016-09-13 Completed Universit y of Vaccine Quad IM 3+ 00:00:00 [facility] HPV 2012-07-08 Completed University of 00:00:00 [facility] HPV 2012-07-08 Completed University of 00:00:00 [place] [facility] HPV 2012-07-08 Completed University of 00:00:00 [place] [facility] HPV 2012-07-08 Completed University of 00:00:00 [place] [facility] HPV 2012-07-08 Completed University of 00:00:00 [place] [facility] HPV 2012-07-08 Completed University of 00:00:00 [place] [facility] HPV 2012-07-08 Completed University of 00:00:00 [place] [facility] HPV 2012-07-08 Completed University of 00:00:00 [place] [facility] HPV 2012-07-08 Completed University of 00:00:00 [place] [facility] HPV 2012-07-08 Completed University of 00:00:00 [place] [facility] HPV 2012-07-08 Completed University of 00:00:00 [place] [facility] HPV 2012-07-08 Completed University of 00:00:00 [place] [facility] HPV 2012-07-08 Completed University of 00:00:00 [place] [facility] Branch HPV 2012-07-08 Completed University of 00:00:00 [facility] Branch HPV 2012-07-08 Completed University of 00:00:00 [facility] HPV 2012-07-08 Completed University of 00:00:00 [facility] HPV 2008-12-17 Completed University of 00:00:00 [facility] Meningococcal 2008-12-17 Completed University of Polysaccharide 00:00:00 [place] [facility] (groups A, C, Y and Branc h W-135) conjugate vaccine (MCV4P) HPV 2008-12-17 Completed University of 00:00:00 [facility] Meningococcal 2008-12-17 Completed University of Polysaccharide 00:00:00 [place] [facility] (groups A, C, Y and Branc h W-135) conjugate vaccine (MCV4P) HPV 2008-12-17 Completed University of 00:00:00 [facility] Meningococcal 2008-12-17 Completed University of Polysaccharide 00:00:00 [place] [facility] (groups A, C, Y and Branc h W-135) conjugate vaccine (MCV4P) HPV 2008-12-17 Completed University of 00:00:00 [facility] Meningococcal 2008-12-17 Completed University of Polysaccharide 00:00:00 [place] [facility] (groups A, C, Y and Branc h W-135) conjugate vaccine (MCV4P) HPV 2008-12-17 Completed University of 00:00:00 [facility] Meningococcal 2008-12-17 Completed University of Polysaccharide 00:00:00 [place] [facility] (groups A, C, Y and Branc h W-135) conjugate vaccine (MCV4P) HPV 2008-12-17 Completed University of 00:00:00 [facility] Meningococcal 2008-12-17 Completed University of Polysaccharide 00:00:00 [place] [facility] (groups A, C, Y and Branc h W-135) conjugate vaccine (MCV4P) HPV 2008-12-17 Completed University of 00:00:00 [facility] Meningococcal 2008-12-17 Completed University of Polysaccharide 00:00:00 [place] [facility] (groups A, C, Y and Branc h W-135) conjugate vaccine (MCV4P) HPV 2008-12-17 Completed University of 00:00:00 [facility] Meningococcal 2008-12-17 Completed University of Polysaccharide 00:00:00 [place] [facility] (groups A, C, Y and Branc h W-135) conjugate vaccine (MCV4P) HPV 2008-12-17 Completed University of 00:00:00 [facility] Meningococcal 2008-12-17 Completed University of Polysaccharide 00:00:00 [place] [facility] (groups A, C, Y and Branc h W-135) conjugate vaccine (MCV4P) HPV 2008-12-17 Completed University of 00:00:00 [facility] Meningococcal 2008-12-17 Completed University of Polysaccharide 00:00:00 [place] [facility] (groups A, C, Y and Branc h W-135) conjugate vaccine (MCV4P) HPV 2008-12-17 Completed University of 00:00:00 [facility] Meningococcal 2008-12-17 Completed University of Polysaccharide 00:00:00 [place] [facility] (groups A, C, Y and Branc h W-135) conjugate vaccine (MCV4P) HPV 2008-12-17 Completed University of 00:00:00 [facility] Meningococcal 2008-12-17 Completed University of Polysaccharide 00:00:00 [place] [facility] (groups A, C, Y and Branc h W-135) conjugate vaccine (MCV4P) HPV 2008-12-17 Completed University of 00:00:00 [facility] Meningococcal 2008-12-17 Completed University of Polysaccharide 00:00:00 [place] [facility] (groups A, C, Y and Branc h W-135) conjugate vaccine (MCV4P) HPV 2008-12-17 Completed University of 00:00:00 [facility] Meningococcal 2008-12-17 Completed University of Polysaccharide 00:00:00 [place] [facility] (groups A, C, Y and Branc h W-135) conjugate vaccine (MCV4P) HPV 2008-12-17 Completed University of 00:00:00 [facility] Meningococcal 2008-12-17 Completed University of Polysaccharide 00:00:00 [place] [facility] (groups A, C, Y and Branc h W-135) conjugate vaccine (MCV4P) HPV 2008-12-17 Completed University of 00:00:00 [facility] Meningococcal 2008-12-17 Completed University of Polysaccharide 00:00:00 [place] [facility] (groups A, C, Y and Branc h W-135) conjugate vaccine (MCV4P) Vital Signs Vital Name Observation Time Observation Value Comments Source Systolic blood 2022-10-02 16:45:00 114 mm[Hg] Univer sity of pressure [facility] Diastolic blood 2022-10-02 16:45:00 76 mm[Hg] Unive rsity of [facility] Heart rate 2022-10-02 16:45:00 90 /min General acute hospital Body height 2022-10-02 16:45:00 167.6 cm General acute hospital Body weight 2022-10-02 16:45:00 55.792 kg General acute hospital BMI 2022-10-02 16:45:00 19.85 kg/m2 General acute hospital Oxygen saturation in 2022-10-02 16:45:00 99 /min [place] of Arterial blood by [facility] Pulse oximetry Branch Systolic blood 2022-09-07 19:28:00 120 mm[Hg] Univer sity of [facility] Diastolic blood 2022-09-07 19:28:00 76 mm[Hg] Unive rsity of [facility] Heart rate 2022-09-07 19:28:00 84 /min General acute hospital Body temperature 2022-09-07 19:28:00 36.33 Samantha [facility] 2022-09-07 19:28:00 18 /min [facility] Body height 2022-09-07 19:28:00 170.2 cm General acute hospital Body weight 2022-09-07 19:28:00 54.035 kg [facility] [place] [facility] BMI 2022-09-07 19:28:00 18.66 kg/m2 [facility] [place] [facility] Systolic blood 2022-08-15 19:01:00 111 mm[Hg] Univer sity of pressure [facility] Diastolic blood 2022-08-15 19:01:00 73 mm[Hg] Unive rsity of pressure [facility] Heart rate 2022-08-15 19:01:00 89 /min [facility] [place] [facility] Body temperature 2022-08-15 19:01:00 36.83 Samantha Univ ers[facility] [place] [facility] Respiratory rate 2022-08-15 19:01:00 18 /min Univ ersity [facility] [place] [facility] Body height 2022-08-15 19:01:00 170.2 cm [facility] [place] [facility] Body weight 2022-08-15 19:01:00 53.978 kg [facility] [place] [facility] BMI 2022-08-15 19:01:00 18.64 kg/m2 [facility] [place] [facility] Systolic blood 2022-07-18 18:08:00 124 mm[Hg] Univer sity of pressure [facility] Diastolic blood 2022-07-18 18:08:00 82 mm[Hg] Unive rsity of pressure [facility] Heart rate 2022-07-18 18:08:00 90 /min [facility] [place] [facility] Body temperature 2022-07-18 18:08:00 36.94 Samantha Univ [facility] [place] [facility] Respiratory rate 2022-07-18 18:08:00 20 /min Univ ersity [facility] [place] [facility] Body height 2022-07-18 18:08:00 170.2 cm [facility] [place] [facility] Body weight 2022-07-18 18:08:00 53.797 kg [facility] [place] [facility] BMI 2022-07-18 18:08:00 18.58 kg/m2 [facility] [place] [facility] Systolic blood 2022-06-19 15:01:00 121 mm[Hg] Univer sity of pressure [facility] Diastolic blood 2022-06-19 15:01:00 84 mm[Hg] Unive rsity of pressure [facility] Heart rate 2022-06-19 15:01:00 80 /min Universi ty of [facility] Body temperature 2022-06-19 15:01:00 36.72 Samantha [facility] Respiratory rate 2022-06-19 15:01:00 18 /min [facility] Body height 2022-06-19 15:01:00 170.2 cm Universi ty of [facility] Body weight 2022-06-19 15:01:00 53.78 kg Universi ty of [facility] BMI 2022-06-19 15:01:00 18.57 kg/m2 Universi ty [facility] Systolic blood 2021-11-30 16:23:00 117 mm[Hg] Univer sity of [facility] Diastolic blood 2021-11-30 16:23:00 75 mm[Hg] Unive rsity of [facility] Heart rate 2021-11-30 16:23:00 73 /min Universi ty of [facility] Body temperature 2021-11-30 16:23:00 36.89 Samantha [facility] Body height 2021-11-30 16:23:00 170.2 cm Universi ty of [facility] Body weight 2021-11-30 16:23:00 55.838 kg Universi ty [facility] BMI 2021-11-30 16:23:00 19.28 kg/m2 Universi [facility] Procedures Procedure Date / Time Performed Performing Clinician [facility] ASSIGNMENT OF BENEFITS 2022-10-02 16:39:48 Doctor Unassigned, No [facility] POCT URINALYSIS 2022-09-07 19:29:00 Daysi Shaw [facility] POCT URINALYSIS 2022-08-15 21:26:00 Daysi Shaw [facility] URINE CULTURE 2022-08-15 20:13:00 Lucía [facility] POCT URINALYSIS 2022-07-18 00:00:00 Daysi Shaw [facility] REPORT OF 2022-06-20 05:01:00 Doctor Unassigned, No Un iversity of [facility] POCT TEST 2022-06-19 14:55:00 Daysi Shaw Uni versity of [facility] POCT URINALYSIS W/O 2022-06-19 14:55:00 Daysi Shaw Uni versity of [place] SPECIFIC GRAVITY [facility] DISCLOSURE AND 2021-11-30 06:01:00 Doctor Unassigned, Natali [facility], MEDICAL AND Name Medical [facility] SURGICAL PROCEDURES POCT TEST 2021-11-30 00:00:00 Lissy Bai rsity [facility] Encounters Start End Encounter Admission Attending Care Care Encounter Source Date/Time Date/Time Type Type Clinicians Facility Department ID 2021-07-23 Emergency [facility] [id number] Univers 02:27:33 ity [facility] 2022-10-05 2022-10-05 Outpatient R COLIN [facility] [id number] Univers 10:30:00 10:30:00 DAYSI hsu o f [facility] 2022-10-02 2022-10-02 Outpatient R TIMO JOLLEY [facility] [id number] Univers 10:40:00 11:36:07 [facility] 2022-10-02 2022-10-02 Office Shola [facility] 1.2.840.114 [id number] Univers 10:40:00 11:36:[address] [facility] 350.1.13.10 ity of [place] 4.2.7.2.686 Robby as ANGEL?BLEA [phone] Hi [address] MEDICAL OFFICE BUILDING 2022-10-02 2022-10-02 Orders Doctor LALITHA 1.2.840.114 [id number] Univers 00:00:00 00:00:00 Only Unassigned, JACK 350.1.13.10 ity of [place] [facility] 4.2.7.2.686 Robby as [phone] [address] 2022-09-20 2022-09-20 Telephone Colin [facility] 1.2.840.114 [id number] Univers 00:00:00 00:00:00 Daysi C TELEGRAPH OPERATOR 350.1.13.10 ity of REGIONAL 4.2.7.2.686 Robby as MATERNAL [phone] Med ical & CHILD 107 [facility] 2022-09-20 2022-09-20 Abstract Colin [facility] 1.2.840.114 [id number] Univers 00:00:00 00:00:00 Daysi C TELEGRAPH OPERATOR 350.1.13.10 ity of REGIONAL 4.2.7.2.686 Robby as MATERNAL [phone] Med ical & CHILD [address] [place] [address] 2022-09-14 2022-09-14 Mental Health Therapist [facility] 1.2 .840.114 [id number] Univers 10:00:00 11:00:00 Visit Hamida Radford TELEGRAPH OPERATOR 350.1. 13.10 ity of REGIONAL 4.2.7.2.686 Robby as MATERNAL [phone] Med ical & CHILD 369 [facility] 2022-09-14 2022-09-14 Outpatient P PRABHAKAR [facility] [id number] Univers 10:00:00 10:00:00 CHASEBlanca ity of [facility] 2022-09-12 2022-09-12 [facility] [id number] Univers 13:15:00 13:15:00 DAYSI ity o f [facility] 2022-09-11 2022-09-11 Abstract Colin [facility] 1.2.840.114 [id number] Univers 00:00:00 00:00:00 Daysi C TELEGRAPH OPERATOR 350.1.13.10 ity of REGIONAL 4.2.7.2.686 Robby as MATERNAL [phone] [facility] ical & CHILD [address] [place] [address] 2022-09-11 2022-09-11 Telephone Colin [facility] 1.2.840.114 [id number] Univers 00:00:00 00:00:00 Daysi C TELEGRAPH OPERATOR 350.1.13.10 ity of REGIONAL 4.2.7.2.686 Robby as MATERNAL [phone] Med ical & CHILD [address] [place] [address] 2022-09-07 2022-09-07 Outpatient R COLIN [facility] [id number] Univers 13:30:00 14:25:18 DAYSI ity o f [facility] 2022-09-07 2022-09-07 Routine Colin, [facility] 1.2.520.183 [id number] Univers 13:30:00 14:25:18 Daysi C TELEGRAPH OPERATOR 350.1.13.10 ity of Visit REGIONAL 4.2.7.2.686 Robby as MATERNAL [phone] Med ical & CHILD [address] [place] [address] 2022-09-07 2022-09-07 Telephone Colin [facility] 1.2.840.114 [id number] Univers 00:00:00 00:00:00 Daysi C TELEGRAPH OPERATOR 350.1.13.10 ity of REGIONAL 4.2.7.2.686 Robby as MATERNAL [phone] Med ical & CHILD [address] [place] [address] 2022-08-19 2022-08-19 Case Haroon [facility] 1.2.840.114 [id number] Univers 00:00:00 00:00:00 Management Lucía Julio TELEGRAPH OPERATOR 350.1.13.10 ity of REGIONAL 4.2.7.2.686 Robby as MATERNAL [phone] Med ical & CHILD [address] [place] [address] 2022-08-15 2022-08-15 Outpatient R HAROON [facility] [id number] Univers 12:45:00 13:20:40 LUCÍA itblanca of [facility] 2022-08-15 2022-08-15 Routine Provider, Kristian-[facility] 1 .2.840.114 [id number] Univers 12:45:00 13:20:40 Fadi Shawilola C TELEGRAPH OPERATOR 350.1.13 .10 ity of Visit Lucía Patiño [facility] 4.2.7.2.686 [place] MATERNAL [phone] Med ical & CHILD [address] [place] [address] 2022-08-02 2022-08-02 Mental Health Therapist Lab, Pea-Rmchp [facility] 1.2.840. 114 [id number] Univers 11:30:00 11:45:00 Visit Luz Maria Warren TELEGRAPH OPERATOR 350.1.13.10 ity of REGIONAL 4.2.7.2.686 Robby as MATERNAL [phone] [facility] ical & CHILD 125 [facility] 2022-08-02 2022-08-02 Outpatient P GERALDO [facility] [id number] Univers 11:30:00 11:30:00 LUZ MARIA ity of [facility] 2022-08-02 2022-08-02 Mental Health Therapist 1, [facility] Room [facility] 1.2. 840.114 [id number] Univers 10:30:00 11:15:00 Visit Luz Maria Warren TELEGRAPH OPERATOR 350.1.13.10 ity of REGIONAL 4.2.7.2.686 Robby as MATERNAL [phone] [facility] & CHILD [address] [place] [address] 2022-08-02 2022-08-02 Abstract [facility] 1.2.840.114 [id number] Univers 00:00:00 00:00:00 Daysi C TELEGRAPH OPERATOR 350.1.13.10 ity of REGIONAL 4.2.7.2.686 Robby as MATERNAL [phone] [facility] & CHILD [address] [place] [address] 2022-07-18 2022-07-18 Routine [facility] [id number] [id number] Univers 13:30:00 13:30:00 Daysi C TELEGRAPH OPERATOR 350.1.13.10 ity of Visit REGIONAL 4.2.7.2.686 Robby as MATERNAL [phone] [facility] [address] [place] [address] 2022-07-18 2022-07-18 Outpatient [facility] [id number] Univers 13:30:00 13:19:54 DAYSI ity o f [facility] 2022-06-22 2022-06-22 [facility] 1.2.840.114 [id number] Univers 00:00:00 00:00:00 Daysi C TELEGRAPH OPERATOR 350.1.13.10 ity of REGIONAL 4.2.7.2.686 Robby as MATERNAL [phone] [facility] [address] [place] [address] 2022-06-20 2022-06-20 Orders Doctor DOTY 1.2.840.114 [id number] Univers 00:00:00 00:00:00 Only Unassigned, JACK 350.1.13.10 ity of [place] [facility] 4.2.7.2.686 Robby as [phone] [address] 2022-06-19 2022-06-19 Outpatient R COLIN [facility] [id number] Univers 10:00:00 10:55:26 DAYSI fairchild [facility] 2022-06-19 2022-06-19 [facility] [id number] Univers 10:00:00 10:55:26 Daysi White TELEGRAPH OPERATOR 350.1.13.10 ity of Visit [facility] 4.2.7.2.686 Robby as MATERNAL [phone] [facility] & CHILD [address] [place] [address] 2022-06-19 2022-06-19 [facility] 1.2.390.998 [id number] Univers 00:00:00 00:00:00 (Out) Daysi White TELEGRAPH OPERATOR 350.1.13.10 ity of [facility] 4.2.7.2.686 Robby as MATERNAL [phone] [facility] & [address] 2022-06-13 2022-06-13 Outpatient R COLIN [facility] [id number] Univers 14:15:00 14:15:00 DAYSI fairchild [facility] 2021-11-30 2021-11-30 Outpatient R RICHARDSON [facility] [id number] Univers 10:00:00 11:51:09 LISSY fairchild [facility] 2021-11-30 2021-11-30 Office [facility] 1.2.840.114 [id number] Univers 10:00:00 11:51:09 Visit Lissy Kim TELEGRAPH OPERATOR 350.1.13.10 ity of [facility] 4.2.7.2.686 Robby as MATERNAL [phone] [facility] ical & CHILD 125 [facility] 2021-11-30 2021-11-30 Outpatient R RICHARDSON [facility] [id number] Univers 10:00:00 11:51:09 LISSY fairchild [facility] 2021-11-30 2021-11-30 Orders Doctor DOTY 1.2.840.114 [id number] Univers 00:00:00 00:00:00 Only Unassigned, JACK 350.1.13.10 ity of [place] [facility] 4.2.7.2.686 Robby as [phone] [address] 2021-10-30 2021-10-30 Outpatient R COLIN [facility] [id number] Univers 14:00:00 14:00:00 DAYSI aracelis ulloa [facility] 2021-10-30 2021-10-30 Outpatient [facility] [id number] Univers 14:00:00 14:00:00 DAYSI aracelis ulloa [facility] 2021-10-17 2021-10-17 Telephone [facility] 1.2.840.114 [id number] Univers 00:00:00 00:00:00 Daysi White TELEGRAPH OPERATOR 350.1.13.10 ity of REGIONAL 4.2.7.2.686 Robby as MATERNAL [phone] [facility] & CHILD [address] [place] [address] 2021-10-16 2021-10-16 Outpatient R COLIN [facility] [id number] Univers 09:30:00 09:46:35 DAYSI aracelis ulloa [facility] 2021-10-16 2021-10-16 Routine Jasonleisa, [facility] 1.2.391.464 [id number] Univers 09:30:00 09:46:35 Daysi C TELEGRAPH OPERATOR 350.1.13.10 ity of Visit [facility] 4.2.7.2.686 Robby as MATERNAL [phone] [facility] & CHILD [address] [place] [address] 2021-10-11 2021-10-11 [facility] 1.2.840.114 [id number] Univers 00:00:00 00:00:00 Daysi C TELEGRAPH OPERATOR 350.1.13.10 ity of REGIONAL 4.2.7.2.686 Robby as MATERNAL [phone] [facility] & CHILD [address] [place] [address] 2021-10-04 2021-10-04 Outpatient R COLIN [facility] [id number] Univers 08:15:00 08:15:00 DAYSI morejony o [facility] 2021-09-29 2021-09-29 Outpatient R COLIN, [facility] [id number] Univers 08:00:00 08:00:00 DAYSI darleeny o [facility] 2021-09-28 2021-09-28 Telephone [facility] 1.2.840.114 [id number] [facility] 00:00:00 00:00:00 Daysi Christopher TELEGRAPH OPERATOR 350.1.13.10 ity of REGIONAL 4.2.7.2.686 Robby as MATERNAL [phone] [facility] & CHILD [address] [place] [address] 2021-09-27 2021-09-27 Mental Health Therapist [facility] 1.2.840. 114 [id number] Univers 08:15:00 08:43:56 Visit Arielle Rajput TELEGRAPH OPERATOR 350.1.13.10 ity of REGIONAL 4.2.7.2.686 Robby as MATERNAL [phone] [facility] & [address] 2021-09-27 2021-09-27 Outpatient [place] RAJPUT [facility] [id number] Univers 08:15:00 08:15:00 ARIELLE hsu o f [facility] 2021-09-25 2021-09-25 Outpatient [place] RAJPUT [facility] [id number] Univers 09:30:00 10:55:40 ARIELLE hsu o f [facility] 2021-09-25 2021-09-25 Outpatient [place] RAJPUT [facility] [id number] Univers 09:30:00 10:55:40 ARIELLE hsu o f [facility] 2021-09-25 2021-09-25 [facility] 1.2 .840.114 [id number] Univers 09:30:00 10:55:40 Visit Rajput Giovannamagaly Quinn TELEGRAPH OPERATOR 350.1.13.10 ity of [facility] 4.2.7.2.686 Robby as MATERNAL [phone] [facility] [address] [place] [address] 2021-09-22 2021-09-[address] [facility] ERT [id number] Univers 16:38:00 19:29:00 [facility] 2021-09-22 2021-09-22 Emergency [facility] [id number] Univers 16:38:00 19:29:[address] [facility] 350.1.13.10 i ty [facility] 4.2.7.2.686 [facility] [phone] [address] 2021-09-22 2021-09-[address] [facility] ERT [id number] Univers 16:38:00 19:29:00 [facility] 2021-09-22 2021-09-[address] [facility] ERT [id number] Univers 16:38:00 16:38:00 [facility] 2021-09-22 2021-09-22 Telephone [facility], [facility] 1.2.840.114 [id number] Univers 00:00:00 00:00:00 Daysi White TELEGRAPH OPERATOR 350.1.13.10 ity of [facility] 4.2.7.2.686 Robby as MATERNAL [phone] [facility] & CHILD [address] [place] [address] 2021-09-22 2021-09-22 Telephone Visit, [facility] 1.2.911.039 [id number] Univers 00:00:00 [facility]:00[facility]00 [facility] 350.1.13.10 ity of Nurse [facility] 4.2.7.2.686 Robby as MATERNAL [phone] [facility] [address] [place] [address] 2021-09-20 2021-09-20 Telephone [facility], [facility] 1.2.840.114 [id number] Univers 00:00:00 00:00:00 Daysi C TELEGRAPH OPERATOR 350.1.13.10 ity of REGIONAL 4.2.7.2.686 Robby as MATERNAL [phone] [facility] & [address] 2021-09-19 2021-09-19 [facility] 1.2.840.114 [id number] Univers 00:00:00 00:00:00 Daysi C TELEGRAPH OPERATOR 350.1.13.10 ity of REGIONAL 4.2.7.2.686 Robby as MATERNAL [phone] [facility] & [address] 2021-09-18 2021-09-18 Outpatient [facility] [id number] Univers 08:30:00 10:11:28 DAYSI hsu o f [facility] 2021-09-18 2021-09-18 Initial [facility] [id number] [id number] Univers 08:30:00 10:11:28 Daysi C TELEGRAPH OPERATOR 350.1.13.10 ity of Visit REGIONAL 4.2.7.2.686 Robby as MATERNAL [phone] [address] 2021-09-18 2021-09-18 Outpatient R COLIN, [facility] [id number] Univers 08:30:00 10:11:28 DAYSI hsu o f [facility] 2021-09-18 2021-09-18 Orders Doctor DOTY 1.2.840.114 [id number] Univers 00:00:00 00:00:00 Only Unassigned, JACK 350.1.13.10 ity of [place] [facility] 4.2.7.2.686 Robby as [phone] [facility] [address] [place] 2020-11-23 2020-11-23 Telephone LALITHA Ro 1.2.439.426 [id number] Univers 00:00:00 00:00:00 Mercedes SANTIAGO 350.1.13.10 i ty of HOSPITAL 4.2.7.2.686 Robby as [phone] [facility] [address] 2020-11-22 2020-11-22 Emergency [facility] 1.2.647.660 [id number] Univers 10:54:00 16:40:00 Marnie Jones 350.1.13.10 i ty of [place] 4.2.7.2.686 [place] [id number] [facility] [address] 2020-11-22 2020-11-22 Orders Doctor LALITHA 1.2.840.114 [id number] Univers 00:00:00 00:00:00 Only Unassigned, JACK 350.1.13.10 ity of [place] [facility] 4.2.7.2.686 Robby as [phone] [facility] [address] Results Test Description Test Time Test Comments [...] POCT U APPEAR (test code = 3267) [facility] [id number] 19:29:00 Test Item Value Reference Range Interpretation [...] POCT U APPEAR (test code = 3267) [facility] URINALYSIS W SPECIFIC [id number] 19:29:00 Test Item Value Reference Range Interpretation [...] POCT U APPEAR (test code = 3267) [facility] URINALYSIS W SPECIFIC [id number] 19:29:00 Test Item Value Reference Range Interpretation [...] POCT U APPEAR (test code = 3267) [facility] URINALYSIS W SPECIFIC [id number] 19:29:00 Test Item Value Reference Range Interpretation [...] POCT U APPEAR (test code = 3267) [facility] URINALYSIS W SPECIFIC [id number] 19:29:00 Test Item Value Reference Range Interpretation [...] POCT U APPEAR (test code = 3267) [facility] URINALYSIS W SPECIFIC [id number] 21:26:00 Test Item Value Reference Range Interpretation [...] POCT U APPEAR (test code = 3267) [facility] URINALYSIS W SPECIFIC [id number] 18:10:00 Test Item Value Reference Range Interpretation [...] U UROBILI (test code = . 0.2-1 3260) POCT U BILI (test code = 3261) . Negative - Negative POCT U BLD (test code = 3257) . Negative - Negative POCT U COLOR (test code = 3266) . POCT U APPEAR (test code = 3267) . [facility] URINALYSIS W/O SPECIFIC [id number] 14:56:00 Test Item Value Reference Range Interpretation [...] code = 3257) Large Negative - Negative [facility] URINALYSIS W/O SPECIFIC [id number] 14:56:00 Test Item Value Reference Range Interpretation [...] code = 3257) Large Negative - Negative [facility] URINALYSIS W/O SPECIFIC [id number] 14:56:00 Test Item Value Reference Range Interpretation [...] code = 3257) Large Negative - Negative [facility] [id number] 14:55:00 Test Item Value Reference Range Interpretation Comments POCT PREG (test code = 1605) Positive On board controls acceptable with C Yes Line (test code = 3574) POCT PREG LOT # (test code = 3575) POCT PREG TEST DATE (test code = 3576) [facility] [id number] 14:55:00 Test Item Value Reference Range Interpretation Comments POCT PREG (test code = 1605) Positive On board controls acceptable with C Yes Line (test code = 3574) POCT PREG LOT # (test code = 3575) POCT PREG TEST DATE (test code = 3576) [facility] [id number] 14:55:00 Test Item Value Reference Range Interpretation Comments POCT PREG (test code = 1605) Positive On board controls acceptable with C Yes Line (test code = 3574) POCT PREG LOT # (test code = 3575) POCT PREG TEST DATE (test code = 3576) [id number] 16:26:00 Test Item Value Reference Range Interpretation Comments POCT PREG (test code = 1605) Negative On board controls acceptable with C Yes Line (test code = 3574) POCT PREG LOT # (test code = 3575) POCT PREG TEST DATE (test code = 3576) Lab Interpretation (test code = Normal 85650-5) [facility] [id number] 16:26:00 Test Item Value Reference Range Interpretation Comments POCT PREG (test code = 1605) Negative On board controls acceptable with C Yes Line (test code = 3574) POCT PREG LOT # (test code = 3575) POCT PREG TEST DATE (test code = 3576) Lab Interpretation (test code = Normal 40291-9) [facility]
[2022-10-11 14:00] LABS: Urine Blood 2+ (Negative); Urine Glucose Negative (Negative); Urine Protein 3+ (Negative); Urine pH 5.5 (5.0-7.0)
[2022-10-11 14:15] LABS: Urine Bacteria <20 /HPF (<20); Urine Mucus 1+ /HPF (None Seen); Urine WBC Clump Rare /HPF (None Seen)
--- NOTE | 2022-10-11 15:38 | RAD REPORT ---
EXAM DESCRIPTION: US - Renal Ultrasound-Complete - 10/11/2022 3:12 pm CLINICAL HISTORY: PAIN COMPARISON: Renal Ultrasound-Complete dated 09/07/2022 FINDINGS: Both kidneys are normal in size, shape and echotexture. The right kidney measures 11.1 x 4.5 cm. Moderate hydronephrosis. The left kidney measures 10.5 x 6.6 cm. Mild to moderate hydronephrosis. The urinary bladder is incompletely distended without gross abnormality seen. IMPRESSION: Bilateral hydronephrosis as described.
[2022-10-11 16:00] LABS: Absolute Lymphocytes (CBC) 0.7 K/uL (0.7-4.9); Lymphocytes % 6.1 % (15.3-44.8); MCV 88.5 fL (80-100); MPV 9.2 fL (7.6-11.3); RBC Red Blood Cell Count 3.84 M/uL (3.86-4.86)
[2022-10-11] MEDS ORDERED: NA CHLORIDE 0.9% 1,000 ML ONE (16:07)
[2022-10-11 16:17] LABS: Potassium 3.5 mmol/L (3.5-5.1)
--- NOTE | 2022-10-11 17:06 | ER ---
Nurse's Notes [facility] Name: Preethi Gamino Age: 27 yrs Sex: Female : 1995 Arrival Date: 10/11/2022 Time: 13:26 Bed 13 Private MD: Diagnosis: Other hydronephrosis;Pyelonephritis acute Presentation: 10/11 13:36 Chief complaint: Patient states: having kidney and bladder problems, and slo has sore iw throat, last night I was feeling achy and this morning I was had pain on my right side. Coronavirus screen: Client presents with at least one sign or symptom that may indicate coronavirus-19. Ebola Screen: Patient negative for fever greater than or equal to 101.5 degrees Fahrenheit, and additional compatible Ebola Virus Disease symptoms Patient denies exposure to infectious person. Patient denies travel to an Ebola-affected area in the 21 days before illness onset. No symptoms or risks identified at this time. Initial Sepsis Screen: Does the patient meet any 2 criteria? No. Patient's initial sepsis screen is negative. Does the patient have a suspected source of infection? No. Patient's initial sepsis screen is negative. Risk Assessment: Do you want to hurt yourself or someone else? Patient reports no desire to harm self or others. Onset of symptoms was October 10, 2022. 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 - Social history:: Smoking status: unknown. Screenin:15 [facility] ED Fall Risk Assessment (Adult) History of falling in the last 3 months, eh3 including since admission No falls in past 3 months (0 pts) Confusion or Disorientation No (0 pts) Intoxicated or Sedated No (0 pts) Impaired Gait No (0 pts) Mobility Assist Device Used No (0 pt) Altered Elimination No (0 pt) Score/Fall Risk Level 0 - 2 = Low Risk. Abuse screen: Denies threats or abuse. Denies injuries from another. Nutritional screening: No deficits noted. Tuberculosis screening: No symptoms or risk factors identified. Assessment: 14:15 General: Appears in no apparent distress. uncomfortable, Behavior is calm, cooperative, eh3 appropriate for age. Pain: Complains of pain in abdomen Pain radiates to back. Neuro: Level of Consciousness is awake, alert, obeys commands, Oriented to person, place, time, situation. Cardiovascular: Capillary refill < 3 seconds Patient's skin is warm and dry. Respiratory: Airway is patent Respiratory effort is even, unlabored, Respiratory pattern is regular, symmetrical. GI: Abdomen is round non-distended, Bowel sounds present X 4 quads. Abd is soft and non tender X 4 quads. : No signs and/or symptoms were reported regarding the genitourinary system. EENT: Reports pain in throat. Derm: No signs and/or symptoms reported regarding the dermatologic system. Skin is pink, warm \T\ dry. Musculoskeletal: No signs and/or symptoms reported regarding the musculoskeletal system. Circulation, motion, and sensation intact. Range of motion: intact in all extremities. 15:30 Reassessment: Patient appears in no apparent distress at this time. Patient and/or eh3 family updated on plan of care and expected duration. Pain level reassessed. Patient is alert, oriented x 3, equal unlabored respirations, skin warm/dry/pink. 16:05 Reassessment: 180mL of urine drained from Wilson upon insertion. eh3 16:30 Reassessment: Patient appears in no apparent distress at this time. Patient and/or eh3 family updated on plan of care and expected duration. Pain level reassessed. Patient is alert, oriented x 3, equal unlabored respirations, skin warm/dry/pink. 17:30 Reassessment: Patient appears in no apparent distress at this time. Patient and/or eh3 family updated on plan of care and expected duration. Pain level reassessed. Patient is alert, oriented x 3, equal unlabored respirations, skin warm/dry/pink. Vital Signs: 13:38 BP 124 / 76; Pulse 104; Resp 16; Temp 98.8; Pulse Ox 99% ; Weight 56.25 kg; Height 5 iw ft. 6 in. (167.64 cm); 14:30 BP 102 / 65; Pulse 88; Resp 18; Pulse Ox 99% on R/A; eh3 15:30 BP 103 / 62; Pulse 83; Resp 16; Pulse Ox 99% on R/A; eh3 16:30 BP 106 / 66; Pulse 89; Resp 16; Pulse Ox 100% on R/A; eh3 17:30 BP 113 / 67; Pulse 87; Resp 16; Pulse Ox 100% on R/A; eh3 13:38 Body Mass Index 20.01 (56.25 kg, 167.64 cm) iw Vitals: 14:25 Heart Tones 134. eh3 ED Course: 13:26 Patient arrived in ED. rg4 13:26 Nimo Story FNP-C is PHCP. kb 13:27 Yang Mark MD is Attending Physician. kb 13:37 Triage completed. iw 13:39 Arm band placed on. iw 14:14 Urine Microscopic Only Sent. ss 14:14 Strep Sent. ss 14:15 Dayana Cárdenas, RN is Primary Nurse. eh3 14:15 Patient has correct armband on for positive identification. Bed in low position. Call 3 light in reach. Side rails up X2. Adult w/ patient. Pulse ox on. NIBP on. Door closed. Noise minimized. Warm blanket given. 15:14 US Rp Exam Complete In Process Unspecified. EDMS 15:30 Inserted saline lock: 20 gauge in right antecubital area, using aseptic technique. eh3 Blood collected. 16:05 Wilson cath inserted, using sterile technique, 16 Fr., by ky, balloon inflated, to eh3 gravity drainage, urine specimen collected. Patient tolerated well. 17:34 Wilson cath removed intact, balloon deflated. eh3 17:35 No provider procedures requiring assistance completed. IV discontinued, intact, eh3 bleeding controlled, No redness/swelling at site. Pressure dressing applied. Administered Medications: 16:15 Drug: NS 0.9% 1000 ml Route: IV; Rate: 1 bolus; Site: right antecubital; eh3 17:33 Follow up: IV Status: Completed infusion; IV Intake: 1000ml eh3 17:15 Drug: Rocephin (cefTRIAXone) 1 grams Route: IV; Rate: calculated rate; Site: right eh3 antecubital; 17:32 Follow up: Response: No adverse reaction; IV Status: Completed infusion; IV Intake: [id number] Medication: 17:35 VIS not applicable for this client. eh3 Intake: 17:32 IV: 50ml; Total: 50ml. eh3 17:33 IV: 1000ml; Total: 1050ml. eh3 Outcome: 17:06 Discharge ordered by MD. chavarria 17:35 Discharged to home ambulatory, with family. eh3 17:35 Condition: stable 17:35 Discharge instructions given to patient, Instructed on discharge instructions, follow up and referral plans. medication usage, Demonstrated understanding of instructions, follow-up care, medications, Prescriptions given X 1. 17:37 Patient left the ED. eh3 Signatures: Dispatcher [employer] EDMS Nimo Story, SCISSORS GRINDER-C SCISSORS GRINDER-Ckb Shaista Norman, RN RN Maria Dolores Cedeno RN RN ss Garcia, Rubi 4 Dayana Cárdenas RN RN 3 Corrections: (The following items were deleted from the chart) 15:57 15:30 BP 118 / 108; Pulse 83bpm; Resp 16bpm; Pulse Ox 99% RA; eh3 eh3 17:35 13:37 Home Meds: None; eh3
--- NOTE | 2022-10-11 17:07 | EDPHYS ---
Physician Documentation [facility] Name: Preethi Gamino Age: 27 yrs Sex: Female : 1995 Arrival Date: 10/11/2022 Time: 13:26 Bed 13 Private MD: ED Physician Yang Mark HPI: 10/11 16:54 This 27 yrs old Female presents to ER via Ambulatory with complaints of Abdominal Pain, kb Low Back Pain, Sore Throat. 16:54 The patient presents with flank pain, on the right, urinary symptoms, dysuria. Onset: kb The symptoms/episode began/occurred last night. Modifying factors: The symptoms are alleviated by nothing, the symptoms are aggravated by urinating. Associated signs and symptoms: Pertinent positives: dysuria, fever. Severity of symptoms: At their worst the symptoms were moderate, in the emergency department the symptoms are unchanged. The patient has experienced similar episodes in the past, a few times. The patient has not recently seen a physician. 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 - Social history:: Smoking status: unknown. ROS: 16:52 Cardiovascular: Negative for chest pain, palpitations, and edema. kb 16:52 Constitutional: Positive for fever. 16:52 ENT: Positive for sore throat. 16:52 Abdomen/GI: Positive for abdominal pain. 16:52 : Positive for flank pain, burning with urination, foul smelling urine. 16:52 All other systems are negative. Exam: 16:52 Constitutional: This is a well developed, well nourished patient who is awake, alert, kb and in no acute distress. Head/Face: Normocephalic, atraumatic. ENT: Moist Mucous membranes Cardiovascular: Regular rate and rhythm with a normal S1 and S2. No gallops, murmurs, or rubs. No pulse deficits. Respiratory: Respirations even and unlabored. No increased work of breathing. Talking in full sentences Skin: Warm, dry with normal turgor. Normal color. MS/ Extremity: Pulses equal, no cyanosis. Neurovascular intact. Full, normal range of motion. Neuro: Awake and alert, GCS 15, oriented to person, place, time, and situation. Moves all extremities. Normal gait. 16:52 Abdomen/GI: Inspection: abdomen appears normal, Bowel sounds: normal, Palpation: soft, in all quadrants, mild abdominal tenderness, in the suprapubic area and right lower quadrant. 16:52 Back: CVA tenderness, that is mild, is noted on the right. Vital Signs: 13:38 BP 124 / 76; Pulse 104; Resp 16; Temp 98.8; Pulse Ox 99% ; Weight 56.25 kg; Height 5 iw ft. 6 in. (167.64 cm); 14:30 BP 102 / 65; Pulse 88; Resp 18; Pulse Ox 99% on R/A; eh3 15:30 BP 103 / 62; Pulse 83; Resp 16; Pulse Ox 99% on R/A; eh3 16:30 BP 106 / 66; Pulse 89; Resp 16; Pulse Ox 100% on R/A; eh3 17:30 BP 113 / 67; Pulse 87; Resp 16; Pulse Ox 100% on R/A; eh3 13:38 Body Mass Index 20.01 (56.25 kg, 167.64 cm) iw MDM: 13:29 Patient medically screened. kb 16:54 Data reviewed: vital signs, nurses notes. kb 17:03 Consideration of Admission/Observation Escalation of care including kb admission/observation considered. Management of patient was discussed with the following: [employer]: Dr Mcgowan consulted, recommends outpatient treatment and follow up with OB. Counseling: I had a detailed discussion with the patient and/or guardian regarding: the historical points, exam findings, and any diagnostic results supporting the discharge/admit diagnosis, lab results, radiology results, the need for outpatient follow up, an OB/Gyne specialist, to return to the emergency department if symptoms worsen or persist or if there are any questions or concerns that arise at home. ED course: Pt is nontoxic in appearance, afebrile here, tolerating po intake. Discussed importance of completing antibiotics and following up with OB. Return precautions given. Verbal understanding received from pt and significant other. . 10/11 13:40 Order name: Strep; Complete Time: 14:49 kb 10/11 13:40 Order name: Urine Microscopic Only; Complete Time: 14:20 kb 10/11 14:00 Order name: Urine Dipstick-Ancillary; Complete Time: 14:01 EDKY 10/11 14:01 Order name: Urine --Ancillary (enter results); Complete Time: 14:08 ss 10/11 14:18 Order name: Urine Culture EDKY 10/11 14:30 Order name: CBC with Diff; Complete Time: 16:31 kb 10/11 13:40 Order name: Urine Dipstick-Ancillary (obtain specimen); Complete Time: 14:01 kb 10/11 14:30 Order name: Basic Metabolic Panel; Complete Time: 16:31 kb 10/11 14:30 Order name: Lactate w/ 2H reflex if indic.; Complete Time: 16:31 kb 10/11 14:30 Order name: Blood Culture Adult (2) kb 10/11 14:30 Order name: US Rp Exam Complete; Complete Time: 15:47 kb 10/11 14:50 Order name: Throat Culture EDKY 10/11 13:40 Order name: FHT's; Complete Time: 14:39 kb 10/11 14:30 Order name: IV Start; Complete Time: 15:44 kb 10/11 15:51 Order name: Wilson: please measure initial output; Complete Time: 16:24 snw Administered Medications: 16:15 Drug: NS 0.9% 1000 ml Route: IV; Rate: 1 bolus; Site: right antecubital; eh3 17:33 Follow up: IV Status: Completed infusion; IV Intake: 1000ml eh3 17:15 Drug: Rocephin (cefTRIAXone) 1 grams Route: IV; Rate: calculated rate; Site: right eh3 antecubital; 17:32 Follow up: Response: No adverse reaction; IV Status: Completed infusion; IV Intake: [id number] Disposition: 18:17 Co-signature as Attending Physician, Yang Mark MD I agree with the assessment and kdr plan of care. Disposition Summary: 10/11/22 17:06 Discharge Ordered Location: Home kb Condition: Stable kb Diagnosis - Other hydronephrosis kb - Pyelonephritis acute kb Followup: kb - With: Emergency Department - When: As needed - Reason: Worsening of condition Followup: kb - With: Private Physician - When: 2 - 3 days - Reason: Recheck today's complaints, Continuance of care, Re-evaluation by your physician Discharge Instructions: - Discharge Summary Sheet kb - Pyelonephritis During kb Forms: - Medication Reconciliation Form kb - Thank You Letter kb - Antibiotic Education kb - Prescription Opioid Use kb Prescriptions: - cefpodoxime 100 mg Oral Tablet - take 1 tablet by ORAL route every 12 hours for 10 days take with food; 20 kb tablet; Refills: 0, Product Selection Permitted Signatures: Dispatcher [employer] EDMS Nimo Story, MECHANIC FIELD SERVICE-C MECHANIC FIELD SERVICE-Ckb Yang Mark MD MD kdr Waters, Shelly, MECHANIC FIELD SERVICE-C MECHANIC FIELD SERVICE-[place]an[place] Shaista Norman, RN RN Dayana Cárdenas RN RN [facility] Corrections: (The following items were deleted from the chart) 17:35 13:37 Home Meds: None; [facility]
[2022-10-11] MEDS ORDERED: CEFTRIAXONE 1000 MG/VIAL ONE (17:13)
[2022-10-11] MEDS ORDERED: NA CHLORIDE 0.9% 50 ML IV ONE (17:13)
[2022-10-11 18:23] VITALS: TEMP 98.8
[2022-10-11 18:25] VITALS: O2SAT 100
[2022-10-11 18:27] VITALS: BP 113/67
== END 2022-10-11 17:37 | disposition home or self-care (01) ==
LOC: ER 13:24
DX: O23.02 Infections of kidney in pregnancy, second trimester (principal); O99.891 Other specified diseases and conditions complicating pregnancy; N13.30 Unspecified hydronephrosis
CPT/HCPCS: 87040 ×2; 87070; 87088; 85025; 87086; 80048; 36415; 81025; 87081; 83605; 76770; J7030; 81003; 81015